=== PATIENT | male | born 1995 | race Hispanic/Latino ===

== ENCOUNTER → 2021-09-26 | Emergency (ER) | payer OTHER ==
--- OUTSIDE RECORDS SUMMARY | 2021-09-27 08:50 | XMS REPORT | Continuity of Care Document ---
:1995 Author Organization [facility] t Address [address] [place] [address] Care Team Providers Name Role Phone SELENA CORONEL Primary Care Physician Unavailable Petra GRAHAM Attending Clinician Unavailable LIBAN CORONEL Attending Clinician Unavailable Baldo METZ Attending Clinician BALDO Attending Clinician Unavailable Nurse, Kailash Attending Clinician Unavailable Liban Coronel MD Attending Clinician Doctor Unassigned, Name Attending Clinician Unavailable JAYLA POLO Attending Clinician Unavailable BALDO Admitting Clinician Unavailable Payers Payer Name Policy Type Policy Number Effective Date Expiration Date Katelyn ordaz [facility] [id number] 2017 00:00:00 SELECT Problems Condition Condition Condition Status Onset Resolution Last Treating Co mments Source Name Details Category Date Date Treatment Clinician Date No known No known Disease Unive rs active active ity of problems problems [facility] Allergies, Adverse Reactions, Alerts Allergy Allergy Status Severity Reaction(s) Onset Inactive Treating Comm ents Source Name Type Date Date Clinician NO KNOWN Drug Active Univers ALLERGIE Class ity of S [facility] Social History Social Habit Start Date Stop Date Quantity Comments Source Exposure to Not sure [facility] SARS-CoV-2 [facility] (event) [place] Alcohol intake 2021-04-14 2021-04-14 .29 /d University of 00:00:00 00:00:00 [facility] Tobacco use and 2017-06-06 2017-06-06 Former user Universi ty of exposure 00:00:00 00:00:00 [facility] History of 2016-10-04 User of smokeless Univers ity of tobacco use 00:00:00 tobacco [facility] Tobacco Comment 2016-09-11 2016-09-11 1 cigarette every Un iversity of 00:00:00 00:00:00 2 weeks [facility] Sex Assigned At [birth year] Universit y of 00:00:00 00:00:00 [facility] Smoking Status Start Date Stop Date Source Former smoker 2017-06-06 00:00:00 2017-06-06 00:00:00 Universi ty of [facility] Medications Ordered Filled Start Stop Current Ordering Indication Dosage Frequency Signature Comments Components Source Medication Medication Date Date Medication? Clinician (SIG) Name Name nicotine 21 2021- No 1{patch Apply 1 Univers mg/24 hr 08-17 } Patch to ity of patch 15:46: 00:00 area(s) [place] 01 :00 every 24 Medical (twenty-fo Branch ur) hours. PANTOPRAZOL 2020-07 Yes [id number] TAKE 1 Univers E 40 mg EC 2-13 TABLET BY ity of tablet 00:00: [facility] EVERY DAY Medical Branch PANTOPRAZOL 2020-07 Yes [id number] TAKE 1 Univers E 40 mg EC 2-13 TABLET BY ity of tablet 00:00: [facility] EVERY DAY Medical Branch PANTOPRAZOL 2020-07 Yes [id number] TAKE 1 Univers E 40 mg EC 2-13 TABLET BY ity of tablet 00:00: [facility] EVERY DAY Medical Branch PANTOPRAZOL 2020-07 Yes [id number] TAKE 1 Univers E 40 mg EC 2-13 TABLET BY ity of tablet 00:00: [facility] EVERY DAY Medical Branch PANTOPRAZOL 2020-07 Yes [id number] TAKE 1 Univers E 40 mg EC 2-13 TABLET BY ity of tablet 00:00: [facility] EVERY DAY Medical Branch PANTOPRAZOL 2020-07 Yes [id number] TAKE 1 Univers E 40 mg EC 2-13 TABLET BY ity of tablet 00:00: [facility] EVERY DAY Medical Branch SERTRALINE 2020-07 Yes [id number] TAKE 1 U nivers 100 mg 0-28 TABLET BY ity of tablet 00:00: [facility] EVERY DAY Medical Branch SERTRALINE 2020-07 Yes [id number] TAKE 1 U nivers 100 mg 0-28 TABLET BY ity of tablet 00:00: MOUTH [place] 00 EVERY DAY Medical Branch SERTRALINE 2020-07 Yes [id number] TAKE 1 U nivers 100 mg 0-28 TABLET BY ity of tablet 00:00: MOUTH [place] 00 EVERY DAY Medical Branch SERTRALINE 2020-07 Yes [id number] TAKE 1 U nivers 100 mg 0-28 TABLET BY ity of tablet 00:00: MOUTH [place] 00 EVERY DAY Medical Branch SERTRALINE 2020-07 Yes [id number] TAKE 1 U nivers 100 mg 0-28 TABLET BY ity of tablet 00:00: MOUTH [place] 00 EVERY DAY Medical Branch SERTRALINE 2020-07 Yes [id number] TAKE 1 U nivers 100 mg 0-28 TABLET BY ity of tablet 00:00: MOUTH [place] 00 EVERY DAY Medical Branch traMADoL Yes [id number] 50mg Take 1 Univers (ULTRAM) 50 8-15 tablet by ity of mg tablet 00:00: mouth [place] 00 every 6 Medical (six) Branch hours as needed for Pain (scale 7-10). Indication s: acute pain dicyclomine Yes [id number] 20mg Take 1 Univers 20 mg 8-15 tablet by ity of tablet 00:00: mouth [place] 00 every 6 Medical (six) Branch hours as needed for Abdominal pain. ondansetron Yes [id number] 4mg Take 1 Univers (ZOFRAN) 4 8-15 tablet by ity of mg tablet 00:00: mouth [place] 00 every 8 Medical (eight) Branch hours as needed for Nausea and Vomiting (N/V). ondansetron Yes [id number] 4mg Take 1 Univers (ZOFRAN) 4 8-15 tablet by ity of mg tablet 00:00: mouth [place] 00 every 8 Medical (eight) Branch hours as needed for Nausea and Vomiting (N/V). ondansetron 0 Yes [id number] 4mg Take 1 Univers (ZOFRAN) 4 8-15 tablet by ity of mg tablet 00:00: mouth [place] 00 every 8 Medical (eight) Branch hours as needed for Nausea and Vomiting (N/V). ondansetron Yes [id number] 4mg Take 1 Univers (ZOFRAN) 4 8-15 tablet by ity of mg tablet 00:00: mouth [place] 00 every 8 Medical (eight) Branch hours as needed for Nausea and Vomiting (N/V). ondansetron Yes [id number] 4mg Take 1 Univers (ZOFRAN) 4 8-15 tablet by ity of mg tablet 00:00: mouth [place] 00 every 8 Medical (eight) Branch hours as needed for Nausea and Vomiting (N/V). ondansetron Yes [id number] 4mg Take 1 Univers (ZOFRAN) 4 8-15 tablet by ity of mg tablet 00:00: mouth [place] 00 every 8 Medical (eight) Branch hours as needed for Nausea and Vomiting (N/V). traMADoL 2021- No [id number] 50mg Take 1 Univer s (ULTRAM) 50 8-15 - tablet by it y of mg tablet 00:00: 00:00 mouth [place] 00 :00 every 6 Medical (six) Branch hours as needed for Pain (scale 7-10). Indication s: acute pain dicyclomine 2021- No [id number] 20mg Take 1 Univers 20 mg 8-15 -26 tablet by ity of tablet 00:00: 00:00 mouth [place] 00 :00 every 6 Medical (six) Branch hours as needed for Abdominal pain. QUETIAPINE Yes [id number] TAKE 1 U nivers 25 mg 6-17 TABLET BY ity of tablet 00:00: MOUTH [place] 00 EVERYDAY Medical AT BEDTIME Branch QUETIAPINE 2021- No [id number] TAKE 1 Univers 25 mg 6-17 - TABLET BY ity of tablet 00:00: 00:00 MOUTH [place] 00 :00 EVERYDAY Medical AT BEDTIME Branch nicotine 21 Yes 1{patch Apply 1 Univers mg/24 hr 5-31 } Patch to ity of patch 23:44: area(s) [place] 29 every 24 Medical (twenty-fo Branch ur) hours. albuterol Yes [id number] 2{puff} Inhale 2 Univers 90 3-14 Puffs ity of mcg/actuati 00:00: every 6 [place] as on inhaler 00 (six) Medical hours as Branch needed for Shortness of Breath. albuterol Yes [id number] 2{puff} Inhale 2 Univers 90 3-14 Puffs ity of mcg/actuati 00:00: every 6 Nikhil as on inhaler 00 (six) Medical hours as Branch needed for Shortness of Breath. albuterol Yes [id number] 2{puff} Inhale 2 Univers 90 3-14 Puffs ity of mcg/actuati 00:00: every 6 Nikhil as on inhaler 00 (six) Medical hours as Branch needed for Shortness of Breath. albuterol Yes [id number] 2{puff} Inhale 2 Univers 90 3-14 Puffs ity of mcg/actuati 00:00: every 6 Nikhil as on inhaler 00 (six) Medical hours as Branch needed for Shortness of Breath. albuterol Yes [id number] 2{puff} Inhale 2 Univers 90 3-14 Puffs ity of mcg/actuati 00:00: every 6 Nikhil as on inhaler 00 (six) Medical hours as Branch needed for Shortness of Breath. albuterol Yes [id number] 2{puff} Inhale 2 Univers 90 3-14 Puffs ity of mcg/actuati 00:00: every 6 Nikhil as on inhaler 00 (six) Medical hours as Branch needed for Shortness of Breath. Immunizations Ordered Immunization Filled Immunization Date Status Commen ts Source Name Name HEP B, Adult Dosage 2021 Completed Unive rsity of 00:00:00 [facility] HEP B, Adult Dosage 2021 Completed Unive rsity of 00:00:00 [facility] HEP B, Adult Dosage 2021 Completed Unive rsity of 00:00:00 [facility] HEP B, Adult Dosage 2021 Completed Unive rsity of 00:00:00 [facility] Influenza Virus 2021-07-13 Completed Universit y of Vaccine Quad IM 3+ 00:00:[address] [facility] Influenza Virus 2021-07-13 Completed Universit y of Vaccine 00:00:00 [facility] Influenza Virus 2021-07-13 Completed Universit y of Vaccine Quad IM 3+ 00:00:[address] [facility] Influenza Virus 2021-07-13 Completed Universit y of Vaccine 00:00:00 [facility] Influenza Virus 2021-07-13 Completed Universit y of Vaccine Quad IM 3+ 00:00:[address] [facility] Influenza Virus 2021-07-13 Completed Universit y of Vaccine 00:00:00 [facility] Influenza Virus 2021-07-13 Completed Universit y of Vaccine Quad IM 3+ 00:00:[address] [facility] Influenza Virus 2021-07-13 Completed Universit y of Vaccine 00:00:00 [facility] Influenza Virus 2021-07-13 Completed Universit y of Vaccine Quad IM 3+ 00:00:[address] [facility] Influenza Virus 2021-07-13 Completed Universit y of Vaccine 00:00:00 [facility] Influenza Virus 2021-07-13 Completed Universit y of Vaccine Quad IM 3+ 00:00:[address] [facility] Influenza Virus 2021-07-13 Completed Universit y of Vaccine 00:00:00 [facility] TDAP 2020-12-29 Completed University of 00:00:00 [facility] Meningococcal 2020-12-29 Completed University of Polysaccharide 00:00:00 [place] Medi yesica (groups A, C, Y and Branc h W-135) conjugate vaccine (MCV4P) PPD (TB) 2020-12-29 Completed University of 00:00:00 [facility] TDAP 2020-12-29 Completed University of 00:00:00 [facility] Meningococcal 2020-12-29 Completed University of Polysaccharide 00:00:00 [place] Medi yesica (groups A, C, Y and Branc h W-135) conjugate vaccine (MCV4P) PPD (TB) 2020-12-29 Completed University of 00:00:00 [facility] TDAP 2020-12-29 Completed University of 00:00:00 [facility] Meningococcal 2020-12-29 Completed University of Polysaccharide 00:00:00 [place] Medi yesica (groups A, C, Y and Branc h W-135) conjugate vaccine (MCV4P) PPD (TB) 2020-12-29 Completed University of 00:00:00 [facility] TDAP 2020-12-29 Completed University of 00:00:00 [facility] Meningococcal 2020-12-29 Completed University of Polysaccharide 00:00:00 [place] Medi yesica (groups A, C, Y and Branc h W-135) conjugate vaccine (MCV4P) PPD (TB) 2020-12-29 Completed University of 00:00:00 [facility] TDAP 2020-12-29 Completed University of 00:00:00 [facility] Meningococcal 2020-12-29 Completed University of Polysaccharide 00:00:00 [place] Medi yesica (groups A, C, Y and Branc h W-135) conjugate vaccine (MCV4P) PPD (TB) 2020-12-29 Completed University of 00:00:00 [facility] TDAP 2020-12-29 Completed University of 00:00:00 [facility] Meningococcal 2020-12-29 Completed University of Polysaccharide 00:00:00 [place] Medi yesica (groups A, C, Y and Branc h W-135) conjugate vaccine (MCV4P) PPD (TB) 2020-12-29 Completed University of 00:00:00 [facility] SARS-COV-2 COVID-19 2020-12-21 Completed Unive rsity of PFIZER VACCINE 00:00:00 [facility] SARS-COV-2 COVID-19 2020-12-21 Completed Unive rsity of PFIZER VACCINE 00:00:00 [facility] SARS-COV-2 COVID-19 2020-12-21 Completed Unive rsity of PFIZER VACCINE 00:00:00 [facility] SARS-COV-2 COVID-19 2020-12-21 Completed Unive rsity of PFIZER VACCINE 00:00:00 [facility] SARS-COV-2 COVID-19 2020-12-21 Completed Unive rsity of PFIZER VACCINE 00:00:00 [facility] SARS-COV-2 COVID-19 2020-12-21 Completed Unive rsity of PFIZER VACCINE 00:00:00 [facility] SARS-COV-2 COVID-19 2020-11-29 Completed Unive rsity of PFIZER VACCINE 00:00:00 [facility] SARS-COV-2 COVID-19 2020-11-29 Completed Unive rsity of PFIZER VACCINE 00:00:00 [facility] SARS-COV-2 COVID-19 2020-11-29 Completed Unive rsity of PFIZER VACCINE 00:00:00 [facility] SARS-COV-2 COVID-19 2020-11-29 Completed Unive rsity of PFIZER VACCINE 00:00:00 [facility] SARS-COV-2 COVID-19 2020-11-29 Completed Unive rsity of PFIZER VACCINE 00:00:00 [facility] SARS-COV-2 COVID-19 2020-11-29 Completed Unive rsity of PFIZER VACCINE 00:00:00 [facility] Influenza Virus 2020-05-13 Completed Universit y of Vaccine Quad IM 3+ 00:00:[address] [facility] Influenza Virus 2020-05-13 Completed Universit y of Vaccine Quad IM 3+ 00:00:[address] [facility] Influenza Virus 2020-05-13 Completed Universit y of Vaccine Quad IM 3+ 00:00:[address] [facility] Influenza Virus 2020-05-13 Completed Universit y of Vaccine Quad IM 3+ 00:00:[address] [facility] Influenza Virus 2020-05-13 Completed Universit y of Vaccine Quad IM 3+ 00:00:[address] [facility] Influenza Virus 2020-05-13 Completed Universit y of Vaccine Quad IM 3+ 00:00:[address] [facility] Influenza Virus 2019-05-23 Completed Universit y of Vaccine 00:00:00 [facility] Influenza Virus 2019-05-23 Completed Universit y of Vaccine 00:00:00 [facility] Influenza Virus 2019-05-23 Completed Universit y of Vaccine 00:00:00 [facility] Influenza Virus 2019-05-23 Completed Universit y of Vaccine 00:00:00 [facility] Influenza Virus 2019-05-23 Completed Universit y of Vaccine 00:00:00 [facility] Influenza Virus 2019-05-23 Completed Universit y of Vaccine 00:00:00 [facility] Vital Signs Vital Name Observation Time Observation Value Comments Source Systolic blood 2021-08-24 21:09:00 146 mm[Hg] Univer sity of pressure [facility] Diastolic blood 2021-08-24 21:09:00 79 mm[Hg] Unive rsity of pressure [facility] Heart rate 2021-08-24 21:09:00 90 /min [facility] Body height 2021-08-24 21:08:00 167.6 cm [facility] Body weight 2021-08-24 21:08:00 73.029 kg [facility] BMI 2021-08-24 21:08:00 25.99 kg/m2 Universi ty [facility] Systolic blood 2021-08-16 19:28:00 109 mm[Hg] Univer sity of pressure [facility] Diastolic blood 2021-08-16 19:28:00 72 mm[Hg] Unive rsity of pressure [facility] Heart rate 2021-08-16 19:28:00 80 /min [facility] Respiratory rate 2021-08-16 19:28:00 18 /min Univ ersity of [facility] Body height 2021-08-16 19:28:00 [facility] 2021-08-16 19:28:00 73.057 kg [facility] BMI 2021-08-16 19:28:00 26.00 kg/m2 [facility] Oxygen saturation in 2021-08-16 19:28:00 99 /min [facility] Arterial blood by [facility] Pulse oximetry Branch Procedures Procedure Date / Time Performing Clinician Source Performed TRANSTHORACIC ECHO (TTE) 2021-08-24 21:36:55 [facility] 2021-08-16 06:01:00 Doctor Unassigned, No [facility] RELEASE/CLEARANCE FORMS Name Medical Branch Encounters Start End Encounter Admission Attending Care Care Encounter Source Date/Time Date/Time Type Type Clinicians Facility Department ID 2021-09-25 2021-09-25 Outpatient [facility] [id number] Univers 20:40:00 20:40:00 [id number] [facility] 2021-09-25 2021-09-25 Outpatient [facility] [id number] Univers 20:40:00 20:36:26 DEIDRE mendez o f [facility] 2021-09-19 2021-09-19 [facility] [id number] Univers 14:00:00 14:00:00 [id number] [facility] 2021-09-19 2021-09-19 Outpatient R [facility] [id number] Univers 14:00:00 14:00:00 SELENA [facility] 2021-08-25 2021-08-25 Patient Baldo [facility] [id number] Univers 00:00:00 00:00:00 Secure Msg Ming CHAPO [id number] [facility] [id number] [phone] Mi dical NAL 059 [facility] 2021-08-24 2021-08-24 Outpatient R [facility] [id number] Univers 14:56:01 23:59:00 QIANIKOLE ity o f [facility] 2021-08-24 2021-08-24 [facility] [id number] Univers 14:56:01 23:59:00 Encounter Ming COWAN [id number] ity of [id number] [phone] [facility] 843 [facility] 2021-08-24 2021-08-24 [facility] [id number] Univers 15:00:00 15:00:00 MING [id number] ity o [facility] 2021 2021 Outpatient R [facility] [id number] Univers 15:40:00 15:43:11 SELENA mendez [facility] 2021 2021 Nurse Nurse, Adama Linder [facility] [id number] Univers 15:40:00 15:43:11 [facility] [id number] it[facility] [id number] Nikhil as FABRIZIO?BLEA [phone] [address] OFFICE [facility] 2021 2021 Telephone Waldo [facility] [id number] Univers 00:00:00 00:00:00 [facility] [id number] it y of Liban [facility] [id number] Nikhil as PROFESSIO [phone] [address] OFFICE [facility] 2021-08-16 2021-08-16 [facility] [id number] Univers 13:20:00 13:59:32 Visit Ming COWAN [id number] ity of [id number] [place] [phone] Mi dical [facility] 059 [facility] 2021-08-16 2021-08-16 Outpatient Luis Enrique [facility] [id number] [facility] 13:20:00 13:59:32 MING mendez o f [facility] 2021-08-16 2021-08-16 Orders Doctor LISETH [id number] Univers 00:00:00 00:00:00 Only Unassigned, MARICEL [id number] ity of [place] [facility] [id number] Nikhil as [phone] [address] 2021-08-15 2021-08-15 Outpatient Luis Enrique [facility] [id number] Univers 13:30:00 13:30:00 MAGDALENA mendez of [facility] Results This patient has no known results.
[2021-09-30 11:54] LABS: HBsAG Nonreactive (Nonreactive)
== END ==
LOC: ER 00:09 → LAB 09-27 00:09 → EDSTATUS 09-27 08:40
DX: Z02.9 Encounter for administrative examinations, unspecified (principal)
CPT/HCPCS: 36415; 86705; 86803; 87340; G0433

== ENCOUNTER 2023-11-19 14:11 | Emergency (ER) | payer OTHER ==
--- OUTSIDE RECORDS SUMMARY | 2023-11-19 14:18 | XMS REPORT | Continuity of Care Document ---
Author Name Unknown Address [address] [facility] [address] [place] [address] [facility] thconnect Address [address] [facility] [place] [address] Care Team Providers Care Substation Operator Helper Name Role Phone Homer METZ, Selena Louie Primary Care Physician ROSEANNE VAZ Attending Clinician Unavailable ROSEANNE VAZ Attending Clinician Unavailable Arlette Conroy Attending Clinician [phone] Lisset Mclaughlin MD Attending Clinician [phone] LISSET MCLAUGHLIN Attending Clinician Unavailable Unknown, Attending Attending Clinician Unavailab SELENA Lea Attending Clinician Simran Haas MD, Selena Louie Attending Clinician + [phone] BETH AMAYA Attending Clinician Unavailable Beth Aragon Attending Clinician [phone] Atif October Attending Clinician Unavailab le Doctor Unassigned, Bond Attending Clinician U Adama Clement - Kailash Attending Clinician Unavailable MARI OSULLIVAN Attending Clinician Unavailab Mari Hoang DO Attending Clinician [phone] UNKNOWN, ATTENDING Attending Clinician Unavailab ARLETTE Fernandez Attending Clinician Unavailable Lai Ta Attending Clinician [phone] HAYLEE CERVANTES Attending Clinician Unavailable Haylee Velásquez Attending Clinician [phone] Pepe Gavin MD Attending Clinician [phone] Yousuf HAN, Liudmila Roberts Attending Clinician UnavailLAI Greene Attending Clinician Unavailable ARIC MELISSA Attending Clinician Unavailable Omaghomi OFFSET LITHOGRAPHIC PRESS OPERATOR, Lynnei Attending Clinician [phone] DARLING GRAHAM Attending Clinician Unavailab Ming Dave MD Attending Clinician [phone] MING DOSHI Attending Clinician Unavailable Nurse, Adama Linder Attending Clinician Unavailable 2, [facility] Attending Clinician Unavailable MAGDALENA POLO Attending Clinician Unavail able ALETHA SANDERS Attending Clinician Unava ilStephanie Molina PA-C Attending Clinician [phone] STEPHANIE SANDERSON Attending Clinician Unavailable Tiffani Beck MD Attending Clinician [phone] Nurse, [facility] I Attending Clinician Unavail able Lab, [facility] I Attending Clinician Unavailab Darling Granda Attending Clinician [phone] Provider, [facility] Attending Clinician Un available SELENA EDWARDS III Attending Clinician UnavailMARIA LUISA Ayala Attending Clinician UnavailMaria Luisa Pereyra MD Attending Clinician [phone] STEPHEN RIOS Attending Clinician Unavailable [facility] Attending Clinician Unav ailable Dena Martinez MD Attending Clinician DENA MARTINEZ Attending Clinician Maira vailable Cristy Dupont Attending Clinician [phone] MING DOSHI Admitting Clinician Unavailable Payers Payer Name Policy Type Policy Number Effective Date Expirati on Date Source [facility] [id number] 2017 00:00:00 Problems Condition Name Condition Details Condition Category Status Onset Date Resolution Date Last Treatment Date Treating Clinician Comments Source Essential hypertensi on Essential hypertensi on Disease Active 2021-07 00:00: 00 [facility] Gastroesop hageal reflux disease without esophagiti s Gastroesop hageal reflux disease without esophagiti s Disease Active 2021-07 00:00: 00 [facility] Anxiety Anxiety Disease Active 2021-07 00:00: 00 [facility] No known active problems No known active problems Disease [facility] Allergies, Adverse Reactions, Alerts Allergy Name Allergy Type Status Severity Reaction(s) Onset Date Inactive Date Treating Clinician Comments Source NO KNOWN ALLERGIE S Drug Class Active [facility] Social History Social Habit Start Date Stop Date Quantity Comments Source Gender identity [facility] Sexual orientation [facility] Alcohol intake 2023 00:00:00 2023 00:00:00 .29 /d [facility] History of Social function 2023-07-02 00:00:00 2023-07-02 00:00:00 [facility] Exposure to SARS-CoV-2 (event) 2022-04-22 00:00:00 2022-05-02 09:30:00 Not sure [facility] Tobacco use and exposure 2022-04-04 00:00:00 2022-04-04 00:00:00 Former smokeless tobacco user [facility] Tobacco Comment 2022-04-04 00:00:00 2022-04-04 00:00:00 1 cigarette every 2 weeks [facility] History of tobacco use 2016-10-04 00:00:00 User of smokeless tobacco [facility] Sex Assigned At 1995 00:00:00 1995 00:00:00 [facility] Smoking Status Start Date Stop Date Source Ex-smoker 2022-04-04 00:00:00 2022-04-04 00:00:00 U [facility] Medications Ordered Medication Name Filled Medication Name Start Date Stop Date Current Medication? Ordering Clinician Indication Dosage Frequency Signature (SIG) Comments Components Source pantoprazol e 40 mg EC tablet 11-01 00:00: 00 Yes [id number] 40mg Take 1 tablet by mouth in the morning. [facility] SERTraline 100 mg tablet 11-01 00:00: 00 Yes [id number] 100mg Take 1 tablet by mouth in the morning. [facility] SERTraline 50 mg tablet 4-12 00:00: 00 Yes [id number] 50mg Take 1 tablet by mouth in the morning. [facility] losartan 50 mg tablet 4-12 00:00: 00 Yes [id number] 50mg Take 1 tablet by mouth in the morning. [facility] pantoprazol e 40 mg EC tablet 3- 00:00: 00 10-31 00:00 :00 No [id number] 40mg Take 1 tablet by mouth in the morning. [facility] SERTraline 100 mg tablet 09-23 00:00: 00 10-31 00:00 :00 No [id number] 100mg Take 1 tablet by mouth in the morning. [facility] SERTraline 50 mg tablet 09-23 00:00: 00 10-31 00:00 :00 No [id number] 50mg Take 1 tablet by mouth in the morning. [facility] losartan 50 mg tablet 09-23 00:00: 00 10-31 00:00 :00 No [id number] 50mg Take 1 tablet by mouth in the morning. [facility] benzonatate 100 mg capsule 08-17 00:00: 00 Yes [id number] 200mg Take 2 capsules by mouth every 8 (eight) hours as needed for Cough. [facility] nirmatrelvi r-ritonavir (PAXLOVID) 300 mg (150 mg x 2)-100 mg tablet 08-17 00:00: 00 Yes [id number] 3{tbl} Take 3 tablets by mouth in the morning and 3 tablets in the evening. [facility] albuterol 90 mcg/actuati on inhaler 08-17 00:00: 00 Yes [id number] 2{puff} Inhale 2 Puffs every 6 (six) hours as needed for Wheezing. [facility] ondansetron 4 mg disintegrat ing tablet 08-17 00:00: 00 Yes [id number] 4mg Take 1 tablet by mouth every 12 (twelve) hours as needed for Nausea and Vomiting (N/V). [facility] pantoprazol e 40 mg EC tablet 2022-07 00:00: 00 09-24 00:00 :00 No [id number] 40mg Take 1 tablet by mouth in the morning. [facility] hydrocortis one 25 mg suppository 2022-07 00:00: 00 07-22 05:59 :00 No [id number] 25mg Insert 1 Suppositor y into rectum in the morning and 1 Suppositor y in the evening. Do all this for 3 days. [facility] losartan 50 mg tablet 2022-07 00:00: 00 08-13 00:00 :00 No [id number] 50mg Take 1 tablet by mouth in the morning. [facility] SERTraline 100 mg tablet 2022-07 00:00: 00 08-13 00:00 :00 No [id number] 100mg Take 1 tablet by mouth in the morning. [facility] SERTraline 50 mg tablet 2022-07 00:00: 00 08-13 00:00 :00 No [id number] 50mg Take 1 tablet by mouth in the morning. [facility] ibuprofen 600 mg tablet 2022-07 00:00: 00 Yes 600mg Take 1 tablet by mouth every 6 (six) hours as needed. [facility] amoxicillin 500 mg capsule 2022-07 00:00: 00 07-19 00:00 :00 No TAKE 1 CAPSULE BY MOUTH EVERY 8 HOURS [facility] chlorhexidi ne 0.12 % mouthwash 2022-07 00:00: 00 07-19 00:00 :00 No SWISH AND SPIT WITH 15 ML TWICE A DAY [facility] pantoprazol e 40 mg EC tablet 04-16 00:00: 00 07-18 00:00 :00 No [id number] 40mg Take 1 tablet by mouth in the morning. [facility] NaCl 0.9% (NS) bolus infusion 1,000 mL 01-17 17:30: 00 01-17 18:25 :00 No 1000mL at 999 mL/hr, 1,000 mL, IV Infusion, ONCE, 1 dose, [facility]17/23 [facility] 1230[facility] 30 mg 01-17 16:45: 00 01-17 16:02 :00 No 30mg 30 mg, Slow IV Push, ONCE, 1 dose, On Sun01/17/23 at 1145, Routine [facility] LORazepam (ATIVAN) injection 0.5 mg 01-17 16:00: 00 01-17 16:02 :00 No .5mg 0.5 mg, Slow IV Push, ONCE, 1 dose, On Sun01/17/23 at 1100, STAT [facility] NaCl 0.9% (NS) bolus infusion 1,000 mL 01-17 15:15: 00 01-17 15:40 :00 No 1000mL at 999 mL/hr, 1,000 mL, IV Infusion, ONCE, 1 dose, On Sun01/17/23 at 1015, [facility] famotidine (PEPCID (PF)) injection 20 mg 01-17 14:30: 00 01-17 14:42 :00 No 20mg 20 mg, Slow IV Push, ONCE, 1 dose, On Sun01/17/23 at 0930, [facility] metoclopram sanya HCl (REGLAN) injection 10 mg 01-17 14:30: 00 01-17 14:42 :00 No 10mg 10 mg, Slow IV Push, ONCE, 1 dose, On Sun01/17/23 at 0930, [facility] ondansetron 4 mg disintegrat ing tablet 01-17 00:00: 00 08-17 00:00 :00 No [id number] 4mg Take 1 tablet by mouth every 8 (eight) hours as needed for Nausea and Vomiting (N/V). [facility] SERTRALINE 100 mg tablet 1- 00:00: 00 07-02 00:00 :00 No [id number] TAKE 1 TABLET BY MOUTH EVERY DAY [facility] ergocalcife rol, vitamin d2, 1,250 mcg (50,000 unit) capsule 2021-07 0-12 00:00: 00 07-19 00:00 :00 No [id number] Take 1 capsule by mouth weekly. [facility] rosuvastati n 20 mg tablet 2021-07 00:00: 00 03-23 00:00 :00 No [id number] 20mg Take 1 tablet by mouth at bedtime. [facility] rosuvastati n 20 mg CpSP 2021-07- 00:00: 00 05-03 00:00 :00 No [id number] 20mg Take 20 mg by mouth at bedtime. [facility] losartan 50 mg tablet 2021-07 00:00: 00 07-11 00:00 :00 No [id number] 50mg Take 1 tablet by mouth in the morning. [facility] pantoprazol e 40 mg EC tablet 2021-07 0 00:00: 00 04-14 00:00 :00 No [id number] 40mg Take 1 tablet by mouth in the morning. [facility] doxycycline hyclate 100 mg tablet 9-15 00:00: 00 04-14 04:59 :00 No [id number] 100mg Take 1 tablet by mouth in the morning and 1 tablet in the evening. Do all this for 7 days. [facility] sulfamethox azole-trime thoprim (BACTRIM DS) 800-160 mg per tablet 9-13 00:00: 00 04-12 04:59 :00 No [id number] 1{tbl} Take 1 tablet by mouth in the morning and 1 tablet in the evening. Do all this for 7 days. [facility] BUSPIRONE 10 mg tablet 6-30 00:00: 00 03-23 00:00 :00 No [id number] 10mg TAKE 1 TABLET BY MOUTH 2 (TWO) TIMES DAILY NEEDED FOR OTHER (ANXIETY). [facility] PANTOPRAZOL E 40 mg EC tablet 6-13 00:00: 05-02 00:00 :00 No [id number] TAKE 1 TABLET BY MOUTH EVERY DAY [facility] losartan 50 mg tablet 4-19 00:00: 00 05-02 00:00 :00 No [id number] 50mg Take 1 tablet by mouth daily. [facility] nicotine 21 mg/24 hr patch 08-17 15:46: 01 08-17 00:00 :00 No 1{patch } Apply 1 Patch to area(s) every 24 (twenty-fo ur) hours. [facility] PANTOPRAZOL E 40 mg EC tablet 2020-07 2-13 00:00: 00 10-04 00:00 :00 No [id number] TAKE 1 TABLET BY MOUTH EVERY DAY [facility] SERTRALINE 100 mg tablet 2020-07 0-28 00:00: 00 08-12 00:00 :00 No [id number] TAKE 1 TABLET BY MOUTH EVERY DAY [facility] ondansetron (ZOFRAN) 4 mg tablet 8-15 00:00: 00 10-13 00:00 :00 No [id number] 4mg Take 1 tablet by mouth every 8 (eight) hours as needed for Nausea and Vomiting (N/V). [facility] albuterol 90 mcg/actuati on inhaler 3-14 00:00: 00 03-23 00:00 :00 No [id number] 2{puff} Inhale 2 Puffs every 6 (six) hours as needed for Shortness of Breath. [facility] acetaminoph en-codeine 300-30 mg tablet 2019-07 2-04 00:00: 00 12-14 00:00 :00 No [id number] 1/2 - 1 tab Every 4hrs as needed for pain or cough requiring narcotic Indication s: acute pain [facility] metoclopram sanya HCl 10 mg tablet 2019-07 2-04 00:00: 00 12-14 00:00 :00 No [id number] 1 tab with suspicion of headache and every 6hr until resolved [facility] SERTRALINE 100 mg tablet 2019-07 0-21 00:00: 00 05-19 00:00 :00 No [id number] TAKE 1 TABLET BY MOUTH EVERY DAY [facility] pantoprazol e 40 mg EC tablet 2019-07 0-08 00:00: 00 12-29 00:00 :00 No [id number] 40mg Take 1 tablet by mouth daily. [facility] Immunizations Ordered Immunization Name Filled Immunization Name Date Status Comments Source Influenza Virus Vaccine Quad IM, Preserv and ABX Free 6 MO-64 YRS (FLUCELVAX) 2022-05-16 00:00:00 Completed [facility] Influenza Virus Vaccine Quad IM, Preserv and ABX Free 6 MO-64 YRS (FLUCELVAX) 2022-05-16 00:00:00 Completed [facility] Influenza Virus Vaccine Quad IM, Preserv and ABX Free 6 MO-64 YRS (FLUCELVAX) 2022-05-16 00:00:00 Completed [facility] Influenza Virus Vaccine Quad IM, Preserv and ABX Free 6 MO-64 YRS (FLUCELVAX) 2022-05-16 00:00:00 Completed [facility] HEP B, Adult Dosage 2021 00:00:00 Completed [facility] HEP B, Adult Dosage 2021 00:00:00 Completed [facility] HEP B, Adult Dosage 2021 00:00:00 Completed [facility] HEP B, Adult Dosage 2021 00:00:00 Completed [facility] HEP B, Adult Dosage 2021 00:00:00 Completed [facility] HEP B, Adult Dosage 2021 00:00:00 Completed [facility] HEP B, Adult Dosage 2021 00:00:00 Completed [facility] HEP B, Adult Dosage 2021 00:00:00 Completed [facility] HEP B, Adult Dosage 2021 00:00:00 Completed [facility] HEP B, Adult Dosage 2021 00:00:00 Completed [facility] HEP B, Adult Dosage 2021 00:00:00 Completed [facility] HEP B, Adult Dosage 2021 00:00:00 Completed [facility] HEP B, Adult Dosage 2021 00:00:00 Completed [facility] HEP B, Adult Dosage 2021 00:00:00 Completed [facility] HEP B, Adult Dosage 2021 00:00:00 Completed [facility] HEP B, Adult Dosage 2021 00:00:00 Completed [facility] Influenza Virus Vaccine Quad IM 3+ YRS 2021-07-13 00:00:00 Completed [facility] Influenza Virus Vaccine 2021-07-13 00:00:00 Completed [facility] Influenza Virus Vaccine Quad IM 3+ YRS 2021-07-13 00:00:00 Completed [facility] Influenza Virus Vaccine 2021-07-13 00:00:00 Completed [facility] Influenza Virus Vaccine Quad IM 3+ YRS 2021-07-13 00:00:00 Completed [facility] Influenza Virus Vaccine 2021-07-13 00:00:00 Completed [facility] Influenza Virus Vaccine Quad IM 3+ YRS 2021-07-13 00:00:00 Completed [facility] Influenza Virus Vaccine 2021-07-13 00:00:00 Completed [facility] Influenza Virus Vaccine Quad IM 3+ YRS 2021-07-13 00:00:00 Completed [facility] Influenza Virus Vaccine 2021-07-13 00:00:00 Completed [facility] Influenza Virus Vaccine Quad IM 3+ YRS 2021-07-13 00:00:00 Completed [facility] Influenza Virus Vaccine 2021-07-13 00:00:00 Completed [facility] Influenza Virus Vaccine Quad IM 3+ YRS 2021-07-13 00:00:00 Completed [facility] Influenza Virus Vaccine 2021-07-13 00:00:00 Completed [facility] Influenza Virus Vaccine Quad IM 3+ YRS 2021-07-13 00:00:00 Completed [facility] Influenza Virus Vaccine 2021-07-13 00:00:00 Completed [facility] Influenza Virus Vaccine Quad IM 3+ YRS 2021-07-13 00:00:00 Completed [facility] Influenza Virus Vaccine 2021-07-13 00:00:00 Completed [facility] Influenza Virus Vaccine Quad IM 3+ YRS 2021-07-13 00:00:00 Completed [facility] Influenza Virus Vaccine 2021-07-13 00:00:00 Completed [facility] Influenza Virus Vaccine Quad IM 3+ YRS 2021-07-13 00:00:00 Completed [facility] Influenza Virus Vaccine 2021-07-13 00:00:00 Completed [facility] Influenza Virus Vaccine Quad IM 3+ YRS 2021-07-13 00:00:00 Completed [facility] Influenza Virus Vaccine 2021-07-13 00:00:00 Completed [facility] Influenza Virus Vaccine Quad IM 3+ YRS 2021-07-13 00:00:00 Completed [facility] Influenza Virus Vaccine 2021-07-13 00:00:00 Completed [facility] Influenza Virus Vaccine Quad IM 3+ YRS 2021-07-13 00:00:00 Completed [facility] Influenza Virus Vaccine 2021-07-13 00:00:00 Completed [facility] Influenza Virus Vaccine Quad IM 3+ YRS 2021-07-13 00:00:00 Completed [facility] Influenza Virus Vaccine 2021-07-13 00:00:00 Completed [facility] Influenza Virus Vaccine Quad IM 3+ YRS 2021-07-13 00:00:00 Completed [facility] Influenza Virus Vaccine 2021-07-13 00:00:00 Completed [facility] TDAP 2020-12-29 00:00:00 Completed [facility] Meningococcal Polysaccharide (groups A, C, Y and W-135) conjugate vaccine (MCV4P) 2020-12-29 00:00:00 Completed [facility] PPD (TB) 2020-12-29 00:00:00 Completed [facility] TDAP 2020-12-29 00:00:00 Completed [facility] Meningococcal Polysaccharide (groups A, C, Y and W-135) conjugate vaccine (MCV4P) 2020-12-29 00:00:00 Completed [facility] PPD (TB) 2020-12-29 00:00:00 Completed [facility] TDAP 2020-12-29 00:00:00 Completed [facility] Meningococcal Polysaccharide (groups A, C, Y and W-135) conjugate vaccine (MCV4P) 2020-12-29 00:00:00 Completed [facility] PPD (TB) 2020-12-29 00:00:00 Completed [facility] TDAP 2020-12-29 00:00:00 Completed [facility] Meningococcal Polysaccharide (groups A, C, Y and W-135) conjugate vaccine (MCV4P) 2020-12-29 00:00:00 Completed [facility] PPD (TB) 2020-12-29 00:00:00 Completed [facility] TDAP 2020-12-29 00:00:00 Completed [facility] Meningococcal Polysaccharide (groups A, C, Y and W-135) conjugate vaccine (MCV4P) 2020-12-29 00:00:00 Completed [facility] PPD (TB) 2020-12-29 00:00:00 Completed [facility] TDAP 2020-12-29 00:00:00 Completed [facility] Meningococcal Polysaccharide (groups A, C, Y and W-135) conjugate vaccine (MCV4P) 2020-12-29 00:00:00 Completed [facility] PPD (TB) 2020-12-29 00:00:00 Completed [facility] TDAP 2020-12-29 00:00:00 Completed [facility] Meningococcal Polysaccharide (groups A, C, Y and W-135) conjugate vaccine (MCV4P) 2020-12-29 00:00:00 Completed [facility] PPD (TB) 2020-12-29 00:00:00 Completed [facility] TDAP 2020-12-29 00:00:00 Completed [facility] Meningococcal Polysaccharide (groups A, C, Y and W-135) conjugate vaccine (MCV4P) 2020-12-29 00:00:00 Completed [facility] PPD (TB) 2020-12-29 00:00:00 Completed [facility] TDAP 2020-12-29 00:00:00 Completed [facility] Meningococcal Polysaccharide (groups A, C, Y and W-135) conjugate vaccine (MCV4P) 2020-12-29 00:00:00 Completed [facility] PPD (TB) 2020-12-29 00:00:00 Completed [facility] TDAP 2020-12-29 00:00:00 Completed [facility] Meningococcal Polysaccharide (groups A, C, Y and W-135) conjugate vaccine (MCV4P) 2020-12-29 00:00:00 Completed [facility] PPD (TB) 2020-12-29 00:00:00 Completed [facility] TDAP 2020-12-29 00:00:00 Completed [facility] Meningococcal Polysaccharide (groups A, C, Y and W-135) conjugate vaccine (MCV4P) 2020-12-29 00:00:00 Completed [facility] PPD (TB) 2020-12-29 00:00:00 Completed [facility] TDAP 2020-12-29 00:00:00 Completed [facility] Meningococcal Polysaccharide (groups A, C, Y and W-135) conjugate vaccine (MCV4P) 2020-12-29 00:00:00 Completed [facility] PPD (TB) 2020-12-29 00:00:00 Completed [facility] TDAP 2020-12-29 00:00:00 Completed [facility] Meningococcal Polysaccharide (groups A, C, Y and W-135) conjugate vaccine (MCV4P) 2020-12-29 00:00:00 Completed [facility] PPD (TB) 2020-12-29 00:00:00 Completed [facility] TDAP 2020-12-29 00:00:00 Completed [facility] Meningococcal Polysaccharide (groups A, C, Y and W-135) conjugate vaccine (MCV4P) 2020-12-29 00:00:00 Completed [facility] PPD (TB) 2020-12-29 00:00:00 Completed [facility] TDAP 2020-12-29 00:00:00 Completed [facility] Meningococcal Polysaccharide (groups A, C, Y and W-135) conjugate vaccine (MCV4P) 2020-12-29 00:00:00 Completed [facility] PPD (TB) 2020-12-29 00:00:00 Completed [facility] TDAP 2020-12-29 00:00:00 Completed [facility] Meningococcal Polysaccharide (groups A, C, Y and W-135) conjugate vaccine (MCV4P) 2020-12-29 00:00:00 Completed [facility] PPD (TB) 2020-12-29 00:00:00 Completed [facility] SARS-COV-2 COVID-19 PFIZER VACCINE 2020-12-21 00:00:00 Completed [facility] SARS-COV-2 COVID-19 PFIZER VACCINE 2020-12-21 00:00:00 Completed [facility] SARS-COV-2 COVID-19 PFIZER VACCINE 2020-12-21 00:00:00 Completed [facility] SARS-COV-2 COVID-19 PFIZER VACCINE 2020-12-21 00:00:00 Completed [facility] SARS-COV-2 COVID-19 PFIZER VACCINE 2020-12-21 00:00:00 Completed [facility] SARS-COV-2 COVID-19 PFIZER VACCINE 2020-12-21 00:00:00 Completed [facility] SARS-COV-2 COVID-19 PFIZER VACCINE 2020-12-21 00:00:00 Completed [facility] SARS-COV-2 COVID-19 PFIZER VACCINE 2020-12-21 00:00:00 Completed [facility] SARS-COV-2 COVID-19 PFIZER VACCINE 2020-12-21 00:00:00 Completed [facility] SARS-COV-2 COVID-19 PFIZER VACCINE 2020-12-21 00:00:00 Completed [facility] SARS-COV-2 COVID-19 PFIZER VACCINE 2020-12-21 00:00:00 Completed [facility] SARS-COV-2 COVID-19 PFIZER VACCINE 2020-12-21 00:00:00 Completed [facility] SARS-COV-2 COVID-19 PFIZER VACCINE 2020-12-21 00:00:00 Completed [facility] SARS-COV-2 COVID-19 PFIZER VACCINE 2020-12-21 00:00:00 Completed [facility] SARS-COV-2 COVID-19 PFIZER VACCINE 2020-12-21 00:00:00 Completed [facility] SARS-COV-2 COVID-19 PFIZER VACCINE 2020-12-21 00:00:00 Completed [facility] SARS-COV-2 COVID-19 PFIZER VACCINE 2020-11-29 00:00:00 Completed [facility] SARS-COV-2 COVID-19 PFIZER VACCINE 2020-11-29 00:00:00 Completed [facility] SARS-COV-2 COVID-19 PFIZER VACCINE 2020-11-29 00:00:00 Completed [facility] SARS-COV-2 COVID-19 PFIZER VACCINE 2020-11-29 00:00:00 Completed [facility] SARS-COV-2 COVID-19 PFIZER VACCINE 2020-11-29 00:00:00 Completed [facility] SARS-COV-2 COVID-19 PFIZER VACCINE 2020-11-29 00:00:00 Completed [facility] SARS-COV-2 COVID-19 PFIZER VACCINE 2020-11-29 00:00:00 Completed [facility] SARS-COV-2 COVID-19 PFIZER VACCINE 2020-11-29 00:00:00 Completed [facility] SARS-COV-2 COVID-19 PFIZER VACCINE 2020-11-29 00:00:00 Completed [facility] SARS-COV-2 COVID-19 PFIZER VACCINE 2020-11-29 00:00:00 Completed [facility] SARS-COV-2 COVID-19 PFIZER VACCINE 2020-11-29 00:00:00 Completed [facility] SARS-COV-2 COVID-19 PFIZER VACCINE 2020-11-29 00:00:00 Completed [facility] SARS-COV-2 COVID-19 PFIZER VACCINE 2020-11-29 00:00:00 Completed [facility] SARS-COV-2 COVID-19 PFIZER VACCINE 2020-11-29 00:00:00 Completed [facility] SARS-COV-2 COVID-19 PFIZER VACCINE 2020-11-29 00:00:00 Completed [facility] SARS-COV-2 COVID-19 PFIZER VACCINE 2020-11-29 00:00:00 Completed [facility] Influenza Virus Vaccine Quad IM 3+ YRS 2020-05-13 00:00:00 Completed [facility] Influenza Virus Vaccine Quad IM 3+ YRS 2020-05-13 00:00:00 Completed [facility] Influenza Virus Vaccine Quad IM 3+ YRS 2020-05-13 00:00:00 Completed [facility] Influenza Virus Vaccine Quad IM 3+ YRS 2020-05-13 00:00:00 Completed [facility] Influenza Virus Vaccine Quad IM 3+ YRS 2020-05-13 00:00:00 Completed [facility] Influenza Virus Vaccine Quad IM 3+ YRS 2020-05-13 00:00:00 Completed [facility] Influenza Virus Vaccine Quad IM 3+ YRS 2020-05-13 00:00:00 Completed [facility] Influenza Virus Vaccine Quad IM 3+ YRS 2020-05-13 00:00:00 Completed [facility] Influenza Virus Vaccine Quad IM 3+ YRS 2020-05-13 00:00:00 Completed [facility] Influenza Virus Vaccine Quad IM 3+ YRS 2020-05-13 00:00:00 Completed [facility] Influenza Virus Vaccine Quad IM 3+ YRS 2020-05-13 00:00:00 Completed [facility] Influenza Virus Vaccine Quad IM 3+ YRS 2020-05-13 00:00:00 Completed [facility] Influenza Virus Vaccine Quad IM 3+ YRS 2020-05-13 00:00:00 Completed [facility] Influenza Virus Vaccine Quad IM 3+ YRS 2020-05-13 00:00:00 Completed [facility] Influenza Virus Vaccine Quad IM 3+ YRS 2020-05-13 00:00:00 Completed [facility] Influenza Virus Vaccine Quad IM 3+ YRS 2020-05-13 00:00:00 Completed [facility] Influenza Virus Vaccine 2019-05-23 00:00:00 Completed [facility] Influenza Virus Vaccine 2019-05-23 00:00:00 Completed [facility] Influenza Virus Vaccine 2019-05-23 00:00:00 Completed [facility] Influenza Virus Vaccine 2019-05-23 00:00:00 Completed [facility] Influenza Virus Vaccine 2019-05-23 00:00:00 Completed [facility] Influenza Virus Vaccine 2019-05-23 00:00:00 Completed [facility] Influenza Virus Vaccine 2019-05-23 00:00:00 Completed [facility] Influenza Virus Vaccine 2019-05-23 00:00:00 Completed [facility] Influenza Virus Vaccine 2019-05-23 00:00:00 Completed [facility] Influenza Virus Vaccine 2019-05-23 00:00:00 Completed [facility] Influenza Virus Vaccine 2019-05-23 00:00:00 Completed [facility] Influenza Virus Vaccine 2019-05-23 00:00:00 Completed [facility] Influenza Virus Vaccine 2019-05-23 00:00:00 Completed [facility] Influenza Virus Vaccine 2019-05-23 00:00:00 Completed [facility] Influenza Virus Vaccine 2019-05-23 00:00:00 Completed [facility] Influenza Virus Vaccine 2019-05-23 00:00:00 Completed [facility] Meningococcal Polysaccharide (groups A, C, Y and W-135) conjugate vaccine (MCV4P) Unknown Completed [facility] PPD (TB) Unknown Completed [facility] HEP B, Adult Dosage Unknown Completed [facility] Influenza Virus Vaccine Quad IM 3+ YRS Unknown Completed [facility] Influenza Virus Vaccine Unknown Completed [facility] Influenza Virus Vaccine Quad IM 3+ YRS Unknown Completed [facility] Influenza Virus Vaccine Unknown Completed [facility] Influenza Virus Vaccine Quad IM, Preserv and ABX Free 6 MO-64 YRS (FLUCELVAX) Unknown Completed [facility] Influenza Virus Vaccine Quad IM 3+ YRS Unknown Completed [facility] Influenza Virus Vaccine Unknown Completed [facility] Varicella (varivax)(chicken pox) Unknown Completed [facility] SARS-COV-2 COVID-19 PFIZER VACCINE Unknown Completed [facility] SARS-COV-2 COVID-19 PFIZER VACCINE Unknown Completed [facility] TDAP Unknown Completed [facility] Meningococcal Polysaccharide (groups A, C, Y and W-135) conjugate vaccine (MCV4P) Unknown Completed [facility] PPD (TB) Unknown Completed [facility] HEP B, Adult Dosage Unknown Completed [facility] Influenza Virus Vaccine Quad IM 3+ YRS Unknown Completed [facility] Influenza Virus Vaccine Unknown Completed [facility] Influenza Virus Vaccine Quad IM 3+ YRS Unknown Completed [facility] Influenza Virus Vaccine Unknown Completed [facility] Influenza Virus Vaccine Quad IM, Preserv and ABX Free 6 MO-64 YRS (FLUCELVAX) Unknown Completed [facility] Influenza Virus Vaccine Quad IM 3+ YRS Unknown Completed [facility] Influenza Virus Vaccine Unknown Completed [facility] Varicella (varivax)(chicken pox) Unknown Completed [facility] SARS-COV-2 COVID-19 PFIZER VACCINE Unknown Completed [facility] SARS-COV-2 COVID-19 PFIZER VACCINE Unknown Completed [facility] TDAP Unknown Completed [facility] Meningococcal Polysaccharide (groups A, C, Y and W-135) conjugate vaccine (MCV4P) Unknown Completed [facility] PPD (TB) Unknown Completed [facility] HEP B, Adult Dosage Unknown Completed [facility] Influenza Virus Vaccine Quad IM 3+ YRS Unknown Completed [facility] Influenza Virus Vaccine Unknown Completed [facility] Influenza Virus Vaccine Quad IM 3+ YRS Unknown Completed [facility] Influenza Virus Vaccine Unknown Completed [facility] Influenza Virus Vaccine Quad IM, Preserv and ABX Free 6 MO-64 YRS (FLUCELVAX) Unknown Completed [facility] Influenza Virus Vaccine Quad IM 3+ YRS Unknown Completed [facility] Influenza Virus Vaccine Unknown Completed [facility] Varicella (varivax)(chicken pox) Unknown Completed [facility] SARS-COV-2 COVID-19 PFIZER VACCINE Unknown Completed [facility] SARS-COV-2 COVID-19 PFIZER VACCINE Unknown Completed [facility] TDAP Unknown Completed [facility] Meningococcal Polysaccharide (groups A, C, Y and W-135) conjugate vaccine (MCV4P) Unknown Completed [facility] PPD (TB) Unknown Completed [facility] HEP B, Adult Dosage Unknown Completed [facility] Influenza Virus Vaccine Quad IM 3+ YRS Unknown Completed [facility] Influenza Virus Vaccine Unknown Completed [facility] Influenza Virus Vaccine Quad IM 3+ YRS Unknown Completed [facility] Influenza Virus Vaccine Unknown Completed [facility] Influenza Virus Vaccine Quad IM, Preserv and ABX Free 6 MO-64 YRS (FLUCELVAX) Unknown Completed [facility] Influenza Virus Vaccine Quad IM 3+ YRS Unknown Completed [facility] Influenza Virus Vaccine Unknown Completed [facility] Varicella (varivax)(chicken pox) Unknown Completed [facility] SARS-COV-2 COVID-19 PFIZER VACCINE Unknown Completed [facility] SARS-COV-2 COVID-19 PFIZER VACCINE Unknown Completed [facility] TDAP Unknown Completed [facility] Meningococcal Polysaccharide (groups A, C, Y and W-135) conjugate vaccine (MCV4P) Unknown Completed [facility] PPD (TB) Unknown Completed [facility] HEP B, Adult Dosage Unknown Completed [facility] Influenza Virus Vaccine Quad IM 3+ YRS Unknown Completed [facility] Influenza Virus Vaccine Unknown Completed [facility] Influenza Virus Vaccine Quad IM 3+ YRS Unknown Completed [facility] Influenza Virus Vaccine Unknown Completed [facility] Influenza Virus Vaccine Quad IM, Preserv and ABX Free 6 MO-64 YRS (FLUCELVAX) Unknown Completed [facility] Influenza Virus Vaccine Quad IM 3+ YRS Unknown Completed [facility] Influenza Virus Vaccine Unknown Completed [facility] Varicella (varivax)(chicken pox) Unknown Completed [facility] SARS-COV-2 COVID-19 PFIZER VACCINE Unknown Completed [facility] SARS-COV-2 COVID-19 PFIZER VACCINE Unknown Completed [facility] TDAP Unknown Completed [facility] Meningococcal Polysaccharide (groups A, C, Y and W-135) conjugate vaccine (MCV4P) Unknown Completed [facility] PPD (TB) Unknown Completed [facility] HEP B, Adult Dosage Unknown Completed [facility] Influenza Virus Vaccine Quad IM 3+ YRS Unknown Completed [facility] Influenza Virus Vaccine Unknown Completed [facility] Influenza Virus Vaccine Quad IM 3+ YRS Unknown Completed [facility] Influenza Virus Vaccine Unknown Completed [facility] Influenza Virus Vaccine Quad IM, Preserv and ABX Free 6 MO-64 YRS (FLUCELVAX) Unknown Completed [facility] Influenza Virus Vaccine Quad IM 3+ YRS Unknown Completed [facility] Influenza Virus Vaccine Unknown Completed [facility] Varicella (varivax)(chicken pox) Unknown Completed [facility] SARS-COV-2 COVID-19 PFIZER VACCINE Unknown Completed [facility] SARS-COV-2 COVID-19 PFIZER VACCINE Unknown Completed [facility] TDAP Unknown Completed [facility] Meningococcal Polysaccharide (groups A, C, Y and W-135) conjugate vaccine (MCV4P) Unknown Completed [facility] PPD (TB) Unknown Completed [facility] HEP B, Adult Dosage Unknown Completed [facility] Influenza Virus Vaccine Quad IM 3+ YRS Unknown Completed [facility] Influenza Virus Vaccine Unknown Completed [facility] Influenza Virus Vaccine Quad IM 3+ YRS Unknown Completed [facility] Influenza Virus Vaccine Unknown Completed [facility] Influenza Virus Vaccine Quad IM, Preserv and ABX Free 6 MO-64 YRS (FLUCELVAX) Unknown Completed [facility] Influenza Virus Vaccine Quad IM 3+ YRS Unknown Completed [facility] Influenza Virus Vaccine Unknown Completed [facility] Varicella (varivax)(chicken pox) Unknown Completed [facility] SARS-COV-2 COVID-19 PFIZER VACCINE Unknown Completed [facility] SARS-COV-2 COVID-19 PFIZER VACCINE Unknown Completed [facility] TDAP Unknown Completed [facility] Meningococcal Polysaccharide (groups A, C, Y and W-135) conjugate vaccine (MCV4P) Unknown Completed [facility] PPD (TB) Unknown Completed [facility] HEP B, Adult Dosage Unknown Completed [facility] Influenza Virus Vaccine Quad IM 3+ YRS Unknown Completed [facility] Influenza Virus Vaccine Unknown Completed [facility] Influenza Virus Vaccine Quad IM 3+ YRS Unknown Completed [facility] Influenza Virus Vaccine Unknown Completed [facility] Influenza Virus Vaccine Quad IM, Preserv and ABX Free 6 MO-64 YRS (FLUCELVAX) Unknown Completed [facility] Influenza Virus Vaccine Quad IM 3+ YRS Unknown Completed [facility] Influenza Virus Vaccine Unknown Completed [facility] Varicella (varivax)(chicken pox) Unknown Completed [facility] SARS-COV-2 COVID-19 PFIZER VACCINE Unknown Completed [facility] SARS-COV-2 COVID-19 PFIZER VACCINE Unknown Completed [facility] TDAP Unknown Completed [facility] Meningococcal Polysaccharide (groups A, C, Y and W-135) conjugate vaccine (MCV4P) Unknown Completed [facility] PPD (TB) Unknown Completed [facility] HEP B, Adult Dosage Unknown Completed [facility] Influenza Virus Vaccine Quad IM 3+ YRS Unknown Completed [facility] Influenza Virus Vaccine Unknown Completed [facility] Influenza Virus Vaccine Quad IM 3+ YRS Unknown Completed [facility] Influenza Virus Vaccine Unknown Completed [facility] Influenza Virus Vaccine Quad IM, Preserv and ABX Free 6 MO-64 YRS (FLUCELVAX) Unknown Completed [facility] Influenza Virus Vaccine Quad IM 3+ YRS Unknown Completed [facility] Influenza Virus Vaccine Unknown Completed [facility] Varicella (varivax)(chicken pox) Unknown Completed [facility] SARS-COV-2 COVID-19 PFIZER VACCINE Unknown Completed [facility] SARS-COV-2 COVID-19 PFIZER VACCINE Unknown Completed [facility] TDAP Unknown Completed [facility] Meningococcal Polysaccharide (groups A, C, Y and W-135) conjugate vaccine (MCV4P) Unknown Completed [facility] PPD (TB) Unknown Completed [facility] HEP B, Adult Dosage Unknown Completed [facility] Influenza Virus Vaccine Quad IM 3+ YRS Unknown Completed [facility] Influenza Virus Vaccine Unknown Completed [facility] Influenza Virus Vaccine Quad IM 3+ YRS Unknown Completed [facility] Influenza Virus Vaccine Unknown Completed [facility] Influenza Virus Vaccine Quad IM, Preserv and ABX Free 6 MO-64 YRS (FLUCELVAX) Unknown Completed [facility] SARS-COV-2 COVID-19 PFIZER VACCINE Unknown Completed [facility] SARS-COV-2 COVID-19 PFIZER VACCINE Unknown Completed [facility] TDAP Unknown Completed [facility] Meningococcal Polysaccharide (groups A, C, Y and W-135) conjugate vaccine (MCV4P) Unknown Completed [facility] PPD (TB) Unknown Completed [facility] HEP B, Adult Dosage Unknown Completed [facility] Influenza Virus Vaccine Quad IM 3+ YRS Unknown Completed [facility] Influenza Virus Vaccine Unknown Completed [facility] Influenza Virus Vaccine Quad IM 3+ YRS Unknown Completed [facility] Influenza Virus Vaccine Unknown Completed [facility] SARS-COV-2 COVID-19 PFIZER VACCINE Unknown Completed [facility] SARS-COV-2 COVID-19 PFIZER VACCINE Unknown Completed [facility] TDAP Unknown Completed [facility] Meningococcal Polysaccharide (groups A, C, Y and W-135) conjugate vaccine (MCV4P) Unknown Completed [facility] PPD (TB) Unknown Completed [facility] Influenza Virus Vaccine Quad IM 3+ YRS Unknown Completed [facility] Influenza Virus Vaccine Unknown Completed [facility] SARS-COV-2 COVID-19 PFIZER VACCINE Unknown Completed [facility] SARS-COV-2 COVID-19 PFIZER VACCINE Unknown Completed [facility] Influenza Virus Vaccine Quad IM 3+ YRS Unknown Completed [facility] Influenza Virus Vaccine Unknown Completed [facility] SARS-COV-2 COVID-19 PFIZER VACCINE Unknown Completed [facility] Influenza Virus Vaccine Quad IM 3+ YRS Unknown Completed [facility] Influenza Virus Vaccine Unknown Completed [facility] SARS-COV-2 COVID-19 PFIZER VACCINE Unknown Completed [facility] Influenza Virus Vaccine Quad IM 3+ YRS Unknown Completed [facility] Influenza Virus Vaccine Unknown Completed [facility] SARS-COV-2 COVID-19 PFIZER VACCINE Unknown Completed [facility] Influenza Virus Vaccine Quad IM 3+ YRS Unknown Completed [facility] Influenza Virus Vaccine Unknown Completed [facility] SARS-COV-2 COVID-19 PFIZER VACCINE Unknown Completed [facility] SARS-COV-2 COVID-19 PFIZER VACCINE Unknown Completed [facility] TDAP Unknown Completed [facility] Meningococcal Polysaccharide (groups A, C, Y and W-135) conjugate vaccine (MCV4P) Unknown Completed [facility] PPD (TB) Unknown Completed [facility] HEP B, Adult Dosage Unknown Completed [facility] Influenza Virus Vaccine Quad IM 3+ YRS Unknown Completed [facility] Influenza Virus Vaccine Unknown Completed [facility] Influenza Virus Vaccine Quad IM 3+ YRS Unknown Completed [facility] [facility] Influenza Virus Vaccine Unknown Completed [facility] Influenza Virus Vaccine Quad IM, Preserv and ABX Free 6 MO-64 YRS (FLUCELVAX) Unknown Completed [facility] SARS-COV-2 COVID-19 PFIZER VACCINE Unknown Completed [facility] SARS-COV-2 COVID-19 PFIZER VACCINE Unknown Completed [facility] TDAP Unknown Completed [facility] Meningococcal Polysaccharide (groups A, C, Y and W-135) conjugate vaccine (MCV4P) Unknown Completed [facility] PPD (TB) Unknown Completed [facility] HEP B, Adult Dosage Unknown Completed [facility] Influenza Virus Vaccine Quad IM 3+ YRS Unknown Completed [facility] Influenza Virus Vaccine Unknown Completed [facility] Influenza Virus Vaccine Quad IM 3+ YRS Unknown Completed [facility] Influenza Virus Vaccine Unknown Completed [facility] Influenza Virus Vaccine Quad IM, Preserv and ABX Free 6 MO-64 YRS (FLUCELVAX) Unknown Completed [facility] SARS-COV-2 COVID-19 PFIZER VACCINE Unknown Completed [facility] SARS-COV-2 COVID-19 PFIZER VACCINE Unknown Completed [facility] TDAP Unknown Completed [facility] Meningococcal Polysaccharide (groups A, C, Y and W-135) conjugate vaccine (MCV4P) Unknown Completed [facility] PPD (TB) Unknown Completed [facility] HEP B, Adult Dosage Unknown Completed [facility] Influenza Virus Vaccine Quad IM 3+ YRS Unknown Completed [facility] Influenza Virus Vaccine Unknown Completed [facility] Influenza Virus Vaccine Quad IM 3+ YRS Unknown Completed [facility] Influenza Virus Vaccine Unknown Completed [facility] Influenza Virus Vaccine Quad IM, Preserv and ABX Free 6 MO-64 YRS (FLUCELVAX) Unknown Completed [facility] SARS-COV-2 COVID-19 PFIZER VACCINE Unknown Completed [facility] SARS-COV-2 COVID-19 PFIZER VACCINE Unknown Completed [facility] TDAP Unknown Completed [facility] Meningococcal Polysaccharide (groups A, C, Y and W-135) conjugate vaccine (MCV4P) Unknown Completed [facility] PPD (TB) Unknown Completed [facility] HEP B, Adult Dosage Unknown Completed [facility] Influenza Virus Vaccine Quad IM 3+ YRS Unknown Completed [facility] Influenza Virus Vaccine Unknown Completed [facility] Influenza Virus Vaccine Quad IM 3+ YRS Unknown Completed [facility] Influenza Virus Vaccine Unknown Completed [facility] Influenza Virus Vaccine Quad IM, Preserv and ABX Free 6 MO-64 YRS (FLUCELVAX) Unknown Completed [facility] Influenza Virus Vaccine Quad IM 3+ YRS Unknown Completed [facility] Influenza Virus Vaccine Unknown Completed [facility] SARS-COV-2 COVID-19 PFIZER VACCINE Unknown Completed [facility] SARS-COV-2 COVID-19 PFIZER VACCINE Unknown Completed [facility] TDAP Unknown Completed [facility] Meningococcal Polysaccharide (groups A, C, Y and W-135) conjugate vaccine (MCV4P) Unknown Completed [facility] PPD (TB) Unknown Completed [facility] HEP B, Adult Dosage Unknown Completed [facility] Influenza Virus Vaccine Quad IM 3+ YRS Unknown Completed [facility] Influenza Virus Vaccine Unknown Completed [facility] Influenza Virus Vaccine Quad IM 3+ YRS Unknown Completed [facility] Influenza Virus Vaccine Unknown Completed [facility] Influenza Virus Vaccine Quad IM, Preserv and ABX Free 6 MO-64 YRS (FLUCELVAX) Unknown Completed [facility] Influenza Virus Vaccine Quad IM 3+ YRS Unknown Completed [facility] Influenza Virus Vaccine Unknown Completed [facility] SARS-COV-2 COVID-19 PFIZER VACCINE Unknown Completed [facility] SARS-COV-2 COVID-19 PFIZER VACCINE Unknown Completed [facility] TDAP Unknown Completed [facility] Meningococcal Polysaccharide (groups A, C, Y and W-135) conjugate vaccine (MCV4P) Unknown Completed [facility] PPD (TB) Unknown Completed [facility] HEP B, Adult Dosage Unknown Completed [facility] Influenza Virus Vaccine Quad IM 3+ YRS Unknown Completed [facility] Influenza Virus Vaccine Unknown Completed [facility] Influenza Virus Vaccine Quad IM 3+ YRS Unknown Completed [facility] Influenza Virus Vaccine Unknown Completed [facility] Influenza Virus Vaccine Quad IM, Preserv and ABX Free 6 MO-64 YRS (FLUCELVAX) Unknown Completed [facility] Influenza Virus Vaccine Quad IM 3+ YRS Unknown Completed [facility] Influenza Virus Vaccine Unknown Completed [facility] SARS-COV-2 COVID-19 PFIZER VACCINE Unknown Completed [facility] SARS-COV-2 COVID-19 PFIZER VACCINE Unknown Completed [facility] TDAP Unknown Completed [facility] Meningococcal Polysaccharide (groups A, C, Y and W-135) conjugate vaccine (MCV4P) Unknown Completed [facility] PPD (TB) Unknown Completed [facility] HEP B, Adult Dosage Unknown Completed [facility] Influenza Virus Vaccine Quad IM 3+ YRS Unknown Completed [facility] Influenza Virus Vaccine Unknown Completed [facility] Influenza Virus Vaccine Quad IM 3+ YRS Unknown Completed [facility] Influenza Virus Vaccine Unknown Completed [facility] Influenza Virus Vaccine Quad IM, Preserv and ABX Free 6 MO-64 YRS (FLUCELVAX) Unknown Completed [facility] Influenza Virus Vaccine Quad IM 3+ YRS Unknown Completed [facility] Influenza Virus Vaccine Unknown Completed [facility] SARS-COV-2 COVID-19 PFIZER VACCINE Unknown Completed [facility] SARS-COV-2 COVID-19 PFIZER VACCINE Unknown Completed [facility] TDAP Unknown Completed [facility] Meningococcal Polysaccharide (groups A, C, Y and W-135) conjugate vaccine (MCV4P) Unknown Completed [facility] PPD (TB) Unknown Completed [facility] HEP B, Adult Dosage Unknown Completed [facility] Influenza Virus Vaccine Quad IM 3+ YRS Unknown Completed [facility] Influenza Virus Vaccine Unknown Completed [facility] Influenza Virus Vaccine Quad IM 3+ YRS Unknown Completed [facility] Influenza Virus Vaccine Unknown Completed [facility] Influenza Virus Vaccine Quad IM, Preserv and ABX Free 6 MO-64 YRS (FLUCELVAX) Unknown Completed [facility] Influenza Virus Vaccine Quad IM 3+ YRS Unknown Completed [facility] Influenza Virus Vaccine Unknown Completed [facility] Varicella (varivax)(chicken pox) Unknown Completed [facility] SARS-COV-2 COVID-19 PFIZER VACCINE Unknown Completed [facility] SARS-COV-2 COVID-19 PFIZER VACCINE Unknown Completed [facility] TDAP Unknown Completed [facility] Meningococcal Polysaccharide (groups A, C, Y and W-135) conjugate vaccine (MCV4P) Unknown Completed [facility] PPD (TB) Unknown Completed [facility] HEP B, Adult Dosage Unknown Completed [facility] Influenza Virus Vaccine Quad IM 3+ YRS Unknown Completed [facility] Influenza Virus Vaccine Unknown Completed [facility] Influenza Virus Vaccine Quad IM 3+ YRS Unknown Completed [facility] Influenza Virus Vaccine Unknown Completed [facility] Influenza Virus Vaccine Quad IM, Preserv and ABX Free 6 MO-64 YRS (FLUCELVAX) Unknown Completed [facility] Influenza Virus Vaccine Quad IM 3+ YRS Unknown Completed [facility] Influenza Virus Vaccine Unknown Completed [facility] Varicella (varivax)(chicken pox) Unknown Completed [facility] SARS-COV-2 COVID-19 PFIZER VACCINE Unknown Completed [facility] SARS-COV-2 COVID-19 PFIZER VACCINE Unknown Completed [facility] TDAP Unknown Completed [facility] Vital Signs Vital Name Observation Time Observation Value Comments S ource Systolic blood pressure 2023 20:12:00 136 mm[Hg] [facility] Diastolic blood pressure 2023 20:12:00 69 mm[Hg] [facility] Heart rate 2023 20:12:00 99 /min [facility] Body temperature 2023 20:12:00 37.17 Mima [facility] Respiratory rate 2023 20:12:00 14 /min [facility] Body height 2023 20:12:00 167.6 cm [facility] Body weight 2023 20:12:00 76.204 kg [facility] BMI 2023 20:12:00 27.12 kg/m2 [facility] Oxygen saturation in Arterial blood by Pulse oximetry 2023 20:12:00 97 /min [facility] Systolic blood pressure 2023-08-13 20:54:00 126 mm[Hg] [facility] Diastolic blood pressure 2023-08-13 20:54:00 85 mm[Hg] [facility] Heart rate 2023-08-13 20:54:00 88 /min [facility] Body temperature 2023-08-13 20:54:00 36.78 Mima [facility] Body height 2023-08-13 20:54:00 167.6 cm [facility] Body weight 2023-08-13 20:54:00 74.934 kg [facility] BMI 2023-08-13 20:54:00 26.66 kg/m2 [facility] Oxygen saturation in Arterial blood by Pulse oximetry 2023-08-13 20:54:00 98 /min [facility] Systolic blood pressure 2023-07-19 16:55:00 107 mm[Hg] [facility] Diastolic blood pressure 2023-07-19 16:55:00 66 mm[Hg] [facility] Heart rate 2023-07-19 16:55:00 69 /min [facility] Body temperature 2023-07-19 16:55:00 36.72 Mima [facility] Body height 2023-07-19 16:55:00 167.6 cm [facility] Body weight 2023-07-19 16:55:00 78.472 kg [facility] BMI 2023-07-19 16:55:00 27.92 kg/m2 [facility] Systolic blood pressure 2023-07-18 20:50:00 126 mm[Hg] [facility] Diastolic blood pressure 2023-07-18 20:50:00 80 mm[Hg] [facility] Heart rate 2023-07-18 20:50:00 93 /min [facility] Body temperature 2023-07-18 20:50:00 36.22 Mima [facility] Respiratory rate 2023-07-18 20:50:00 14 /min [facility] Body height 2023-07-18 20:50:00 167.6 cm [facility] Body weight 2023-07-18 20:50:00 76.295 kg [facility] BMI 2023-07-18 20:50:00 27.15 kg/m2 [facility] Oxygen saturation in Arterial blood by Pulse oximetry 2023-07-18 20:50:00 99 /min [facility] Systolic blood pressure 2023-07-02 21:35:00 127 mm[Hg] [facility] Diastolic blood pressure 2023-07-02 21:35:00 85 mm[Hg] [facility] Heart rate 2023-07-02 21:34:00 84 /min [facility] Body height 2023-07-02 21:34:00 167.6 cm [facility] Body weight 2023-07-02 21:34:00 78.2 kg [facility] BMI 2023-07-02 21:34:00 27.83 kg/m2 [facility] Oxygen saturation in Arterial blood by Pulse oximetry 2023-07-02 21:34:00 97 /min [facility] Systolic blood pressure 2023-03-23 20:28:00 116 mm[Hg] [facility] Diastolic blood pressure 2023-03-23 20:28:00 79 mm[Hg] [facility] Heart rate 2023-03-23 20:27:00 80 /min [facility] Body height 2023-03-23 20:27:00 167.6 cm [facility] Body weight 2023-03-23 20:27:00 76.794 kg [facility] BMI 2023-03-23 20:27:00 27.33 kg/m2 [facility] Oxygen saturation in Arterial blood by Pulse oximetry 2023-03-23 20:27:00 98 /min [facility] Heart rate 2023-01-17 18:15:00 112 /min [facility] Respiratory rate 2023-01-17 18:15:00 19 /min [facility] Oxygen saturation in Arterial blood by Pulse oximetry 2023-01-17 18:15:00 97 /min [facility] Systolic blood pressure 2023-01-17 18:04:05 135 mm[Hg] [facility] Diastolic blood pressure 2023-01-17 18:04:05 76 mm[Hg] [facility] Body temperature 2023-01-17 14:26:00 37.28 Mima [facility] Body weight 2023-01-17 14:26:00 76.204 [facility] 2023-01-17 14:26:00 27.12 kg/m2 [facility] Systolic blood pressure 2022-05-02 15:00:00 126 mm[Hg] [facility] Diastolic blood pressure 2022-05-02 15:00:00 83 mm[Hg] [facility] Heart rate 2022-05-02 14:56:00 80 /min [facility] Body height 2022-05-02 14:56:00 167.6 cm [facility] Body weight 2022-05-02 14:56:00 76.204 kg [facility] BMI 2022-05-02 14:56:00 27.12 kg/m2 [facility] Oxygen saturation in Arterial blood by Pulse oximetry 2022-05-02 14:56:00 98 /min [facility] Systolic blood pressure 2022-04-04 15:09:00 143 mm[Hg] [facility] Diastolic blood pressure 2022-04-04 15:09:00 88 mm[Hg] [facility] Heart rate 2022-04-04 15:09:00 76 /min [facility] Body temperature 2022-04-04 15:09:00 36.67 Mima [facility] Respiratory rate 2022-04-04 15:09:00 16 /min [facility] Body height 2022-04-04 15:09:00 167.6 cm [facility] Body weight 2022-04-04 15:09:00 76.159 kg [facility] BMI 2022-04-04 15:09:00 27.10 kg/m2 [facility] Oxygen saturation in Arterial blood by Pulse oximetry 2022-04-04 15:09:00 99 /min [facility] Procedures Procedure Date / Time Performed Performing Clinician Source POCT SARS-COV-2 ANTIGEN (BINAX NOW) 2023 20:15:00 Haylee Cervantes [facility] VARICELLA (VARIVAX)(CHICKEN POX) VACCINE 2023-07-19 17:04:40 Selena Haas [facility] ASSIGNMENT OF BENEFITS 2023-07-02 21:28:44 Docto r Unassigned, Bond [facility] ASSIGNMENT OF BENEFITS 2023-01-17 15:07:17 Docto r Unassigned, Bond [facility] LIPASE 2023-01-17 14:41:00 Mari Osullivan Un [facility] COMP. METABOLIC PANEL (96703) 2023-01-17 14:41:00 Mari Osullivan [facility] CBC WITH DIFF 2023-01-17 14:41:00 Mari Osullivan U [facility] NOTICE OF PRIVACY PRACTICES 2023-01-17 14:23:26 Doctor Unassigned, Bond [facility] CONSENT/REFUSAL FOR DIAGNOSIS AND TREATMENT 2023-01-17 14:21:42 Doctor Unassigned, Bond [facility] COMP. METABOLIC PANEL ([id number]) 2022-05-02 15:47:00 Arlette Schmidt [facility] CBC WITH DIFF 2022-05-02 15:47:00 [facility] ASSIGNMENT OF BENEFITS 2022-05-02 14:32:54 Docto r Unassigned, Bond [facility] URINALYSIS MICROSCOPIC 2022-04-04 15:22:00 Mireille Fortune [facility] POCT URINALYSIS 2022-04-04 00:00:00 Haylee Cervantes [facility] Encounters Start Date/Time End Date/Time Encounter Type Admission Type Attending Clinicians Care Facility Care Department Encounter ID Source 2021-05-23 15:35:00 Emergency [facility] [id number] [facility] 2021-05-22 05:52:01 Emergency [facility] [id number] [facility] 2023-11-01 00:00:00 2023-11-01 00:00:00 Refill Arlette Schmidt [facility] 1..840.114 350.1.13.10 4.2.7.2.686 [id number] [facility] 2023-11-01 00:00:00 2023-11-01 00:00:00 Refill Roseanne Vaz [facility] 1..840.114 350.1.13.10 4.2.7.2.686 [id number] [facility] 2023-10-24 00:00:00 2023-10-24 00:00:00 Refill Sofia [facility] 1.2.840.114 350.1.13.10 4.2.7.2.686 [id number] [facility] 2023-09-25 00:00:00 2023-09-25 00:00:00 Refill Arlette Schmidt [facility] R[facility]AN?[facility] 1.2840.114 350.1.13.10 4.2.7.2.686 [id number] [facility] 2023-09-25 00:00:00 2023-09-25 00:00:00 Refill Lisset Mclaughlin [facility] 1.2840.114 350.1.13.10 4.2.7.2.686 [id number] [facility] 2023-08-28 00:00:00 2023-08-28 00:00:00 Patient Secure Msg Vaz Roseanne [facility] R[facility]AN?[facility] 1.2.840.114 350.1.13.10 4.2.7.2.686 [id number] [facility] 2023 14:00:00 2023 14:25:29 Outpatient R LISSET MCLAUGHLIN [facility] [id number] [facility] 2023 14:00:00 2023 14:25:29 Urgent Care Lisset Mclaughlin, Attending [facility] 1.2.840.114 350.1.13.10 4.2.7.2.686 [id number] [facility] 2023-08-13 14:40:00 2023-08-13 15:10:23 Outpatient R ROSEANNE VAZ CHRISTINE [facility] [id number] [facility] 2023-08-13 14:40:00 2023-08-13 15:10:23 Office Visit Roseanne Vaz [facility] 1..840.114 350.1.13.10 4.2.7.2.686 [id number] [facility] 2023-07-19 10:45:00 2023-07-19 12:28:11 Outpatient R TERACASSANDRASELENA [facility] [id number] [facility] 2023-07-19 10:45:00 2023-07-19 12:28:11 Office Visit CeceliajessicaSelena [facility] 1.840.114 350.1.13.10 4.2.7.2.686 [id number] [facility] 2023-07-18 14:40:00 2023-07-18 15:17:21 Outpatient R BETH AMAYA [facility] [id number] [facility] 2023-07-18 14:40:00 2023-07-18 15:00:00 Urgent Care Beth Amaya Unknown, Attending [facility] 1..840.114 350.1.13.10 4.2.7.2.686 [id number] [facility] 2023-07-18 00:00:00 2023-07-18 00:00:00 Arlette Padilla [facility] 1..840.114 350.1.13.10 4.2.7.2.686 [id number] [facility] 2023-07-07 00:00:00 2023-07-07 00:00:00 [facility] 1.2.840.114 350.1.13.10 4.2.7.2.686 [id number] [facility] 2023-07-05 00:00:00 2023-07-05 00:00:00 Pre Visit Outreach Jerri Srivastava 1.2.840.114 350.1.13.10 4.2.7.2.686 [id number] [facility] 2023-07-02 15:40:00 2023-07-02 16:44:11 [facility] [id number] [facility] 2023-07-02 15:40:00 2023-07-02 16:44:11 Office Visit Sofia [facility] 1.2.840.114 350.1.13.10 4.2.7.2.686 [id number] [facility] 2023-07-02 00:00:00 2023-07-02 00:00:00 Orders Only Doctor Unassigned, Bond [facility] 1.2.840.114 350.1.13.10 4.2.7.2.686 [id number] [facility] 2023-04-14 00:00:00 2023-04-14 00:00:00 [facility] 1.2.840.114 350.1.13.10 4.2.7.2.686 [id number] [facility] 2023-03-23 16:00:00 2023-03-23 17:40:45 Outpatient ROSEANNE WATERS ROSEANNE [facility] [id number] [facility] 2023-03-23 16:00:00 2023-03-23 17:40:45 Housekeeper Nanny Visit Lab, Ang - Db Sofia [facility] 1..840.114 350.1.13.10 4.2.7.2.686 [id number] [facility] 2023-03-23 15:20:00 2023-03-23 15:59:39 Office Visit Sofia [facility] MEDICAL OFFICE BUILDING 1..840.114 350.1.13.10 4.2.7.2.686 [id number] [id number] [facility] 2023-01-17 09:26:00 2023-01-17 13:30:00 Emergency X MARI OSULLIVAN [facility] [id number] [facility] 2023-01-17 09:26:00 2023-01-17 13:30:00 Emergency Mari Osullivan [facility] 1..840.114 350.1.13.10 4.2.7.2.686 [id number] [facility] 2023-01-17 09:40:00 2023-01-17 09:40:00 Outpatient R KADEEM ALVAREZ [facility] [id number] [facility] 2022-09-26 16:00:00 2022-09-26 16:00:00 Outpatient ARLETTE LAZAR [facility] [id number] [facility] 2022-08-11 00:00:00 2022-08-11 00:00:00 Selena Iqbal [facility] MEDICAL OFFICE BUILDING 1..840.114 350.1.13.10 4.2.7.2.686 [id number] [id number] [facility] 2022-05-26 00:00:00 2022-05-26 00:00:00 Arlette Padilla [facility] MEDICAL OFFICE BUILDING 1.0.114 350.1.13.10 4.2.7.2.686 [id number] [id number] [facility] 2022-05-03 00:00:00 2022-05-03 00:00:00 [facility] MEDICAL OFFICE BUILDING 1.0.114 350.1.13.10 4.2.7.2.686 [id number] 044 [id number] [facility] 2022-05-02 10:45:00 2022-05-02 11:00:00 Housekeeper Nanny Visit Lab, Adama Linder Maria L SchmidtFormerly [facility] MEDICAL OFFICE BUILDING 1.114 350.1.13.10 4.2.7.2.686 [id number] [facility] 2022-05-02 09:30:00 2022-05-02 10:39:27 [facility] [id number] [facility] 2022-05-02 09:30:00 2022-05-02 10:39:27 Office Visit Maria L SchmidtFormerly [facility] MEDICAL OFFICE BUILDING 1..114 350.1.13.10 4.2.7.2.686 [id number] 044 [id number] [facility] 2022-05-02 00:00:00 2022-05-02 00:00:00 Orders Only Doctor Unassigned, Bond [facility] 1..114 350.1.13.10 4.2.7.2.686 [id number] [facility] 2022-04-06 00:00:00 2022-04-06 00:00:00 Telephone Mireille Fortuney [facility] RYAN?[facility] MEDICAL OFFICE BUILDING 1.0.114 350.1.13.10 4.2.7.2.686 [id number] [facility] 2022-04-04 09:40:00 2022-04-04 10:49:58 Outpatient R HAYLEE CERVANTES [facility] [id number] [facility] 2022-04-04 09:40:00 2022-04-04 10:49:58 Urgent Care [facility] MEDICAL OFFICE BUILDING 1..840.114 350.1.13.10 4.2.7.2.686 [id number] 370 [id number] [facility] 2022-04-04 09:40:00 2022-04-04 10:49:58 Outpatient R HAYLEE CERVANTES [facility] [id number] [facility] 2022-03-21 15:30:00 2022-03-21 15:30:00 Outpatient R ARLETTE SCHMIDT [facility] [id number] [facility] 2022-01-26 00:00:00 2022-01-26 00:00:00 Refill Selena Haas [facility] MEDICAL OFFICE BUILDING 1..840.114 350.1.13.10 4.2.7.2.686 [id number] 044 [id number] [facility] 2022-01-18 00:00:00 2022-01-18 00:00:00 Refill Pepe Gavin [facility] 1..840.114 350.1.13.10 4.2.7.2.686 [id number] [id number] [facility] 2022-01-07 00:00:00 2022-01-07 00:00:00 Telephone Liudmila To [facility] 1..840.114 350.1.13.10 4.2.7.2.686 [id number] [facility] 2022-01-06 16:40:00 2022-01-06 18:13:37 Outpatient R HAYLEE CERVANTES [facility] [id number] [facility] 2022-01-06 16:40:00 2022-01-06 17:00:00 Urgent Care Haylee Cervantes [facility] BUILDING 1..840.114 350.1.13.10 4.2.7.2.686 [id number] [facility] 2022-01-06 10:00:00 2022-01-06 10:00:00 Outpatient R TONG LAI [facility] [id number] [facility] 2021-12-31 00:00:00 2021-12-31 00:00:00 Refill Selena Haas [facility] MED[facility] OFF[facility] BUILDING 1..840.114 350.1.13.10 4.2.7.2.686 [id number] 044 [id number] [facility] 2021-12-15 16:00:00 2021-12-15 16:00:00 Outpatient R SHINARIC [facility] [id number] [facility] 2021-12-15 00:00:00 2021-12-15 00:00:00 Refill Maria L SchmidtFormerly [facility] MEDICAL OFFICE BUILDING 1..840.114 350.1.13.10 4.2.7.2.686 [id number] [id number] [facility] 2021-11-10 13:30:00 2021-11-10 13:30:00 Outpatient R ROXANA ARLETTE [facility] [id number] [facility] 2021-11-09 00:00:00 2021-11-09 00:00:00 Refill Pepe Gavin [facility] MEDICAL OFFICE BUILDING 1..840.114 350.1.13.10 4.2.7.2.686 [id number] 044 [id number] [facility] 2021-11-08 13:30:00 2021-11-08 14:58:29 Outpatient R ARLETTE SCHMIDT [facility] [id number] [facility] 2021-11-08 13:30:00 2021-11-08 14:58:29 [facility] MEDICAL OFFICE BUILDING 1.2.840.114 350.1.13.10 4.2.7.2.686 [id number] [id number] [facility] 2021-11-08 13:30:00 2021-11-08 14:58:29 Outpatient R ARLETTE SCHMIDT [facility] [id number] [facility] 2021-11-08 14:30:00 2021-11-08 14:45:00 Housekeeper Nanny Visit Lab, Adama Linder [facility] MEDICAL OFFICE BUILDING 1..840.114 350.1.13.10 4.2.7.2.686 [id number] [facility] 2021-11-02 00:00:00 2021-11-02 00:00:00 [facility]ill [facility] MEDICAL OFFICE BUILDING 1..840.114 350.1.13.10 4.2.7.2.686 [id number] 044 [id number] [facility] 2021-10-11 10:15:00 2021-10-11 10:30:00 Housekeeper Nanny Visit Lab, Adama [facility]AN?[facility] MEDICAL OFFICE BUILDING 1.2.840.114 350.1.13.10 4.2.7.2.686 [id number] [facility] 2021-10-11 09:30:00 2021-10-11 10:18:11 Outpatient R EMIARLETTE PADILLA [facility] [id number] [facility] 2021-10-11 09:30:00 2021-10-11 10:18:11 [facility] [place] [facility] 1..840.114 350.1.13.10 4.2.7.2.686 [id number] [id number] [facility] 2021-10-11 09:30:00 2021-10-11 10:18:11 Outpatient R [facility] [id number] [facility] 2021-10-11 09:30:00 2021-10-11 10:18:11 Outpatient R ROXANA [facility] [id number] [facility] 2021-10-04 00:00:00 2021-10-04 00:00:00 Selena Iqbal [facility] OFFICE BUILDING ONE 1..840.114 350.1.13.10 4.2.7.2.686 [id number] [facility] 2021-09-28 00:00:00 2021-09-28 00:00:00 Telephone Mark Calvin [facility] 1..840.114 350.1.13.10 4.2.7.2.686 [id number] [facility] 2021-09-25 20:40:00 2021-09-25 20:36:26 Outpatient R DARLING GRAHAM [facility] [id number] [facility] 2021-09-19 14:00:00 2021-09-19 14:00:00 Outpatient SELENA MCCLELLAND [facility] [id number] [facility] 2021-08-25 00:00:00 2021-08-25 00:00:00 Patient Secure Ming Kaur [facility] BUILD[facility] 1..840.114 350.1.13.10 4.2.7.2.686 [id number] [facility] 2021-08-24 14:56:01 2021-08-24 23:59:00 [facility] [id number] [facility] 2021-08-24 14:56:01 2021-08-24 23:59:00 Hospital Encounter Tico [facility] BUILDING 1..840.114 350.1.13.10 4.2.7.2.686 [id number] [facility] 2021-08-23 14:00:00 2021-08-23 14:00:00 [facility] [id number] [facility] 2021 15:40:00 2021 15:43:11 Outpatient R SELENA HAAS [facility] [id number] [facility] 2021 15:40:00 2021 15:43:11 Nurse Visit Nurse, Adama Haas [facility] RYAN?[facility] BUILDING 1..840.114 350.1.13.10 4.2.7.2.686 [id number] 044 [id number] [facility] 2021 15:40:00 2021 15:40:00 Outpatient R [facility] [id number] [facility] 2021 00:00:00 2021 00:00:00 Telephone Selena Haas [facility] OFFICE BUILDING ONE ..840.114 350.1.13.10 4.2.7.2.686 [id number] 044 [id number] [facility] 2021 00:00:00 2021 00:00:00 Patient Secure Msfarheen Doshi [facility] BUILDING 1.2.840.114 350.1.13.10 4.2.7.2.686 [id number] [id number] [facility] 2021-08-16 14:30:00 2021-08-16 14:30:00 Housekeeper Nanny Visit 2, [facility] 1.2.840.114 350.1.13.10 4.2.7.2.686 [id number] [facility] 2021-08-16 13:20:00 2021-08-16 13:59:32 Outpatient R TICO [facility] [id number] [facility] 2021-08-16 13:20:00 2021-08-16 13:59:32 Office Visit Tico [facility] 1.2.840.114 350.1.13.10 4.2.7.2.686 [id number] [facility] 2021-08-16 13:20:00 2021-08-16 13:59:32 [facility] [id number] [facility] 2021-08-16 00:00:00 2021-08-16 00:00:00 Orders Only Doctor Unassigned, Bond [facility] 1..840.114 350.1.13.10 4.2.7.2.686 [id number] [facility] 2021-08-15 13:30:00 2021-08-15 13:30:00 Outpatient MAGDALENA MORAN [facility] [id number] [facility] 2021-08-15 13:30:00 2021-08-15 13:30:00 [facility] [id number] [facility] 2021-08-15 11:40:00 2021-08-15 11:40:00 [facility] [id number] [facility] 2021-08-15 10:00:00 2021-08-15 10:00:00 Outpatient ALETHA WEBER [facility] [id number] [facility] 2021-07-02 00:00:00 2021-07-02 00:00:00 Refill Homer [facility] OFFICE BUILDING ONE 1.840.114 350.1.13.10 4.2.7.2.686 [id number] 044 [id number] [facility] 2021-05-19 00:00:00 2021-05-19 00:00:00 Refill Homer [facility] OFFICE BUILDING ONE 1.84.114 350.1.13.10 4.2.7.2.686 [id number] [id number] [facility] 2021-04-29 00:00:00 2021-04-29 00:00:00 Telephone Homer [facility] Rayn?[facility] 1.84.114 350.1.13.10 4.2.7.2.686 [id number] 044 [id number] [facility] 2021-04-29 00:00:00 2021-04-29 00:00:00 Orders Only Doctor Unassigned, Bond [facility] 1.84114 350.1.13.10 4.2.7.2.686 [id number] [facility] 2021-04-14 15:58:19 2021-04-14 16:50:30 Office Visit Jose [facility] Ryan?[facility] 1.84.114 350.1.13.10 4.2.7.2.686 [id number] 044 [id number] [facility] 2021-04-14 16:00:00 2021-04-14 16:00:00 Outpatient R ARLETTE SCHMIDT [facility] [id number] [facility] 2021-04-14 00:00:00 2021-04-14 00:00:00 Orders Only Doctor Unassigned, Bond [facility] 1.840.114 350.1.13.10 4.2.7.2.686 [id number] [facility] 2021-04-12 00:00:00 2021-04-12 00:00:00 Trena Haas [facility] Office Building One .840.114 350.1.13.10 4.2.7.2.686 [id number] 044 [id number] [facility] 2021-04-01 14:44:37 2021-04-01 16:48:06 Urgent Care Kin [facility] Ryan[facility] 1.840.114 350.1.13.10 4.2.7.2.686 [id number] [facility] 2021-04-01 16:00:00 2021-04-01 16:00:00 Outpatient R [facility] [id number] [facility] 2021-04-01 00:00:00 2021-04-01 00:00:00 Orders Only Doctor Unassigned, Bond [facility] .840.114 350.1.13.10 4.2.7.2.686 [id number] [id number] [facility] 2021-03-27 00:00:00 2021-03-27 00:00:00 Trena Haas [facility] Office Building One .840.114 350.1.13.10 4.2.7.2.686 [id number] [facility] 2021-03-08 00:00:00 2021-03-08 00:00:00 Patient Secure Msg Doctor Unassigned, Bond [facility] 1.114 350.1.13.10 4.2.7.2.686 [id number] [facility] 2021-03-05 22:42:00 2021-03-06 00:53:[address] Beck [facility] 1.114 350.1.13.10 4.2.7.2.686 [id number] [facility] 2021-03-05 18:53:31 2021-03-05 19:13:31 Urgent Care Haylee Cervantes, Attending [facility] Office Building One .114 350.1.13.10 4.2.7.2.686 [id number] 044 [id number] [facility] 2021-03-05 19:00:00 2021-03-05 19:00:00 Outpatient Luis Enrique ALVAREZ, KADEEM [facility] [id number] [facility] 2021-02-16 11:00:00 2021-02-16 11:00:00 Outpatient SELENA MCCLELLAND [facility] [id number] [facility] 2021-02-15 11:00:00 2021-02-15 11:20:00 Nurse Visit Nurse, Pat Peterson PoSelena Rasmussen [facility] Office Building One .114 350.1.13.10 4.2.7.2.686 [id number] [facility] 2021-02-15 11:00:00 2021-02-15 11:00:00 Outpatient SELENA MCCLELLAND [facility] [id number] [facility] 2021-01-11 00:00:00 2021-01-11 00:00:00 Telephone Selena Haas [facility] Office Building One .114 350.1.13.10 4.2.7.2.686 [id number] 044 [id number] [facility] 2021-01-06 00:00:00 2021-01-06 00:00:00 Refill Homer [facility] Office Building One 1.0.114 350.1.13.10 4.2.7.2.686 [id number] 044 [id number] [facility] 2020-12-31 09:56:23 2020-12-31 10:16:23 Nurse Visit Nurse, [facility] Nicolas Haas [facility] Office Building One 1.114 350.1.13.10 4.2.7.2.686 [id number] 044 [id number] [facility] 2020-12-31 08:00:00 2020-12-31 08:00:00 Outpatient R [facility] [id number] [facility] 2020-12-31 00:00:00 2020-12-31 00:00:00 Letter (Out) Homer [facility] Office Building One 1.114 350.1.13.10 4.2.7.2.686 [id number] 044 [id number] [facility] 2020-12-29 16:22:58 2020-12-29 16:33:40 Housekeeper Nanny Visit Lab, [facility] Nicolas Haas [facility] Office Building One 1.114 350.1.13.10 4.2.7.2.686 [id number] 044 [id number] [facility] 2020-12-29 15:44:38 2020-12-29 16:21:34 Office Visit Homer [facility] Office Building One 1.0.114 350.1.13.10 4.2.7.2.686 [id number] [facility] 2020-12-29 15:45:00 2020-12-29 15:45:00 Outpatient R CECELIAJESSICASELENA [facility] [id number] [facility] 2020-12-29 00:00:00 2020-12-29 00:00:00 RefSelena Tao [facility] Office Building One .840.114 350.1.13.10 4.2.7.2.686 [id number] 044 [id number] [facility] 2020-12-23 00:00:00 2020-12-23 00:00:00 Patient Secure Selena Macias [facility] OFFICE BUILDING ONE .114 350.1.13.10 4.2.7.2.686 [id number] [facility] 2020-12-21 14:40:00 2020-12-21 14:40:00 Outpatient R MAGDALENA POLO [facility] [id number] [facility] 2020-12-21 11:30:00 2020-12-21 11:30:00 Outpatient R [facility] [id number] [facility] 2020-12-14 14:21:39 2020-12-14 14:36:39 Office Visit Selena Haas [facility] Office Building One .84.114 350.1.13.10 4.2.7.2.686 [id number] [facility] 2020-12-14 14:15:00 2020-12-14 14:15:00 Outpatient R SELENA HAAS [facility] [id number] [facility] 2020-12-03 00:00:00 2020-12-03 00:00:00 Patient Secure Selena Macias [facility] OFFICE BUILDING ONE .84.114 350.1.13.10 4.2.7.2.686 [id number] 044 [id number] [facility] 2020-12-03 00:00:00 2020-12-03 00:00:00 Patient Secure Msg Selena Haas [facility] OFFICE BUILDING ONE 1.840.114 350.1.13.10 4.2.7.2.686 [id number] [facility] 2020-11-30 00:00:00 2020-11-30 00:00:00 Patient Secure Msg Doctor Unassigned, Bond [facility] 1.840.114 350.1.13.10 4.2.7.2.686 [id number] [id number] [facility] 2020-11-29 14:25:00 2020-11-29 14:25:00 Outpatient MAGDALENA MORAN [facility] [id number] [facility] 2020-11-29 13:49:17 2020-11-29 14:04:17 Office Visit Selena Haas [facility] Office Building One 1.840.114 350.1.13.10 4.2.7.2.686 [id number] [id number] [facility] 2020-11-29 13:45:00 2020-11-29 13:45:00 Outpatient R SELENA HAAS [facility] [id number] [facility] 2020-11-24 18:45:01 2020-11-24 19:05:01 Urgent Care Darling Graham [facility] Office Building One 1.840.114 350.1.13.10 4.2.7.2.686 [id number] 044 [id number] [facility] 2020-11-24 19:00:00 2020-11-24 19:00:00 Outpatient R DARLING GRAHAM [facility] [id number] [facility] 2020-10-03 12:50:00 2020-10-03 23:59:00 Hospital Encounter Calvin Flores [facility] 1..840.114 350.1.13.10 4.2.7.2.686 [id number] [facility] 2020-10-03 12:22:19 2020-10-03 12:56:06 Urgent Care Provider, [facility] Tong [facility] Office Building One 1..840.114 350.1.13.10 4.2.7.2.686 [id number] 044 [id number] [facility] 2020-10-03 11:20:00 2020-10-03 11:20:00 Outpatient R TONG LAI [facility] [id number] [facility] 2020-09-29 21:20:00 2020-09-29 21:20:00 Outpatient R SELENA EDWARDS III [facility] [id number] [facility] 2020-09-25 10:52:20 2020-09-25 11:12:20 Laboratory Only Lab, Adc Fam Pob I Tong [facility] Office Building One 1..840.114 350.1.13.10 4.2.7.2.686 [id number] [facility] 2020-09-25 10:40:00 2020-09-25 10:40:00 Outpatient R TONG LAI [facility] [id number] [facility] 2020-09-23 17:40:00 2020-09-23 17:40:00 Outpatient R DARLING GRAHAM [facility] [id number] [facility] 2020-07-29 10:00:00 2020-07-29 10:00:00 Outpatient R MARIA LUISA HENRY [facility] [id number] [facility] 2020-07-02 08:27:22 2020-07-02 09:19:32 Office Visit Henry, Maria Luisa [facility] 1.114 350.1.13.10 4.2.7.2.686 [id number] [facility] 2020-07-02 08:30:00 2020-07-02 08:30:00 Outpatient Luis Enrique HENRYAMRIA LUISA WALDEN [facility] [id number] [facility] 2020-06-25 15:00:00 2020-06-25 15:00:00 Outpatient SELENA MCCLELLAND [facility] [id number] [facility] 2020-06-23 10:00:15 2020-06-23 10:20:15 Laboratory Only Lab, [facility] .114 350.1.13.10 4.2.7.2.686 [id number] 044 [id number] [facility] 2020-06-23 10:00:00 2020-06-23 10:00:00 [facility] [id number] [facility] 2020-05-12 00:00:00 2020-05-12 00:00:00 Selena Iqbal [facility] Office Building One 1.114 350.1.13.10 4.2.7.2.686 [id number] 044 [id number] [facility] 2020-05-04 08:22:03 2020-05-04 08:42:03 Laboratory Only Lab, Adc [facility] Office Building One .114 350.1.13.10 4.2.7.2.686 [id number] [facility] 2020-05-04 08:20:00 2020-05-04 08:20:00 Outpatient R [facility] [id number] [facility] 2020-04-26 00:00:00 2020-04-26 00:00:00 Refill Selena Haas [facility] Office Building One 1.84.114 350.1.13.10 4.2.7.2.686 [id number] [id number] [facility] 2020-04-14 11:30:13 2020-04-14 11:45:13 Office Visit Selena Haas [facility] Office Building One 1.114 350.1.13.10 4.2.7.2.686 [id number] 044 [id number] [facility] 2020-04-14 11:30:00 2020-04-14 11:30:00 Outpatient R SELENA HAAS [facility] [id number] [facility] 2020-02-17 16:00:00 2020-02-17 16:00:00 Outpatient R STEPHEN RIOS [facility] [id number] [facility] 2020-02-08 16:37:23 2020-02-08 16:57:23 Laboratory Only Lab, Adc Fam Pob I Unknown, Attending [facility] Office Building One 1.84.114 350.1.13.10 4.2.7.2.686 [id number] [id number] [facility] 2020-02-08 16:40:00 2020-02-08 16:40:00 Outpatient R UNKNOWN, ATTENDING [facility] [id number] [facility] 2019-11-14 08:09:10 2019-11-14 08:59:03 Urgent Care Pob1, Acute Care Clinic Dena Martinez [facility] 1.84.114 350.1.13.10 4.2.7.2.686 [id number] [facility] 2019-11-14 08:00:00 2019-11-14 08:00:00 Outpatient R DENA MARTINEZ [facility] [id number] [facility] 2019-11-13 00:00:00 2019-11-13 00:00:00 Telephone Selena Haas femi [facility] 1.0.114 350.1.13.10 4.2.7.2.686 [id number] [facility] 2019-11-07 00:00:00 2019-11-07 00:00:00 Refill Selena Haas [facility] [id number] 350.1.13.10 4.2.7.2.686 [id number] [facility] 2019-10-08 15:06:53 2019-10-08 17:49:49 Office Visit Pob1, Acute Care Clinic Cristy Mcgrath [facility] 1..114 350.1.13.10 4.2.7.2.686 [id number] [facility] 2019-10-08 15:00:00 2019-10-08 15:00:00 Outpatient R [facility] [id number] [facility] 2019-09-02 00:00:00 2019-09-02 00:00:00 Refill Homer [facility] 1..114 350.1.13.10 4.2.7.2.686 [id number] [facility] 2019-08-29 00:00:00 2019-08-29 00:00:00 Refill Selena Haas [facility] 1..114 350.1.13.10 4.2.7.2.686 [id number] 044 [id number] [facility] 2019-08-06 00:00:00 2019-08-06 00:00:00 Refill Selena Haas [facility] 1..114 350.1.13.10 4.2.7.2.686 [id number] 044 [id number] [facility] 2019-03-13 00:00:00 2019-03-13 00:00:00 Orders Only Doctor Unassigned, Bond [facility] 1.2.840.114 350.1.13.10 4.2.7.2.686 [id number] [facility] 2019-03-07 11:16:47 2019-03-07 11:48:21 Office Visit [facility] One 1.2840.114 350.1.13.10 4.2.7.2.686 [id number] 044 [id number] [facility] 2019-03-06 00:00:00 2019-03-06 00:00:00 Telephone Homer [facility] 1.2840.114 350.1.13.10 4.2.7.2.686 [id number] 044 [id number] [facility] 2019-02-27 09:22:09 2019-02-27 09:37:09 Office Visit Selena Haas [facility] 1.2.840.114 350.1.13.10 4.2.7.2.686 [id number] 044 [id number] [facility] 2019-02-20 10:22:47 2019-02-20 10:58:11 Office Visit Selena Haas [facility] 1.2.840.114 350.1.13.10 4.2.7.2.686 [id number] 044 [id number] [facility] Results Test Description Test Time Test Comments Results Result Co mments Source [facility] ([id number])2022-05-02 19:29:14* Test Item Value Reference Range Interpretation Comme nts NA (test code = 3403253698) 141 mmol/L 135-145 K (test code = 1147309230) 4.6 mmol/L 3.5-5 CL (test code = 1665344964) 101 mmol/L 98-108 CO2 TOTAL (test code = 1968922089) 26 mmol/L 23-31 AGAP (test code = 1771509342) 2-16 BUN (test code = 7209406136) 15 mg/dL 7-23 GLUCOSE (test code = 8413215772) 99 mg/dL 70-110 CREATININE (test code = 0722848041) 0.86 mg/dL 0.6-1.25 TOTAL BILI (test code = 2078623872) 0.6 mg/dL 0.1-1.1 CALCIUM (test code = 9275571570) 10.2 mg/dL 8.6-10.6 T PROTEIN (test code = 3657806151) 8.7 g/dL 6.3-8.2 H ALBUMIN (test code = 2322546198) 5.2 g/dL 3.5-5 H ALK PHOS (test code = 8363073379) 58 U/L 34-122 ALTv (test code = 1742-6) 32 U/L 5-50 AST(SGOT) (test code = 7006603018) 29 U/L 13-40 eGFR (test code = 6927700675) mL/min/1.73m2 MAVIS (test code = MAVIS) Association of Glomerular Filtration Rate (GFR) and Staging of Kidney Disease* + --+ --+ ------+| GFR (mL/min/1.73 m2) ?| With Kidney Damage ?| ?Without Kidney Damage+ --------+ --------+ +| ?>90 ?| ?Stage one ?| ? Normal ?+ ---+ ---+ -------+| ?60-89 ?| ?Stage two ?| ? Decreased GFR ? + --+ --+ ------+| ?30-59 ?| ?Stage three ?| ? Stage three ? + --+ --+ ------+| ?15-29 ?| ?Stage four ? | ? Stage four ?+ ---+ ---+ -------+| ?<15 (or dialysis) ? ?| ?Stage five ? | ? Stage five ?+ ---+ ---+ -------+ *Each stage assumes the associated GFR level has been in effect for at least three months. ?Stages 1 to 5, with or without kidney disease, indicate chronic kidney disease. Notes: Determination of stages one and two (with eGFR >59mL/min/1.73 m2) requires estimation of kidney damage for at least three months as defined by structural or functional abnormalities of the kidney, manifested by either:Pathological abnormalities or Markers of kidney damage (including abnormalities in the composition of the blood or urine or abnormalities in imaging tests). Lab Interpretation (test code = 99857-1) [facility]normal [facility] ([id number])2022-05-02 19:29:14* Test Item Value Reference Range Interpretation Comme nts NA (test code = 9691516585) 141 mmol/L 135-145 K (test code = 0437070322) 4.6 mmol/L 3.5-5 CL (test code = 9676381193) 101 mmol/L 98-108 CO2 TOTAL (test code = 4887512945) 26 mmol/L 23-31 AGAP (test code = 5386176833) 2-16 BUN (test code = 4312562596) 15 mg/dL 7-23 GLUCOSE (test code = 4181983693) 99 mg/dL 70-110 CREATININE (test code = 4801271305) 0.86 mg/dL 0.6-1.25 TOTAL BILI (test code = 1101971384) 0.6 mg/dL 0.1-1.1 CALCIUM (test code = 6893006144) 10.2 mg/dL 8.6-10.6 T PROTEIN (test code = 5151548341) 8.7 g/dL 6.3-8.2 H ALBUMIN (test code = 4342728565) 5.2 g/dL 3.5-5 H ALK PHOS (test code = 1762733197) 58 U/L 34-122 ALTv (test code = 1742-6) 32 U/L 5-50 AST(SGOT) (test code = 5028244005) 29 U/L 13-40 eGFR (test code = 0368420353) mL/min/1.73m2 MAVIS (test code = MAVIS) Association of Glomerular Filtration Rate (GFR) and Staging of Kidney Disease* + --+ --+ ------+| GFR (mL/min/1.73 m2) ?| With Kidney Damage ?| ?Without Kidney Damage+ --------+ --------+ +| ?>90 ?| ?Stage one ?| ? Normal ?+ ---+ ---+ -------+| ?60-89 ?| ?Stage two ?| ? Decreased GFR ? + --+ --+ ------+| ?30-59 ?| ?Stage three ?| ? Stage three ? + --+ --+ ------+| ?15-29 ?| ?Stage four ? | ? Stage four ?+ ---+ ---+ -------+| ?<15 (or dialysis) ? ?| ?Stage five ? | ? Stage five ?+ ---+ ---+ -------+ *Each stage assumes the associated GFR level has been in effect for at least three months. ?Stages 1 to 5, with or without kidney disease, indicate chronic kidney disease. Notes: Determination of stages one and two (with eGFR >59mL/min/1.73 m2) requires estimation of kidney damage for at least three months as defined by structural or functional abnormalities of the kidney, manifested by either:Pathological abnormalities or Markers of kidney damage (including abnormalities in the composition of the blood or urine or abnormalities in imaging tests). Lab Interpretation (test code = 44540-5) Abnormal [facility] acute [facility] WITH QDCJ5437-00-06 19:16:56* Test Item Value Reference Range Interpretation Comme nts WBC (test code = 6690-2) See_Comment [[employer]] The system which generated this result transmitted reference range: 4.20 - 10.70 10*3/?L. The reference range was not used to interpret this result as normal/abnormal. RBC (test code = 789-8) See_Comment [Automated [employer]] The system which generated this result transmitted reference range: 4.26 - 5.52 10*6/?L. The reference range was not used to interpret this result as normal/abnormal. HGB (test code = 718-7) 14.3 g/dL 12.2-16.4 HCT (test code = 4544-3) 42.8 % 38.4-49.3 MCV (test code = 787-2) 82.5 fL 81.7-95.6 MCH (test code = 785-6) 27.6 pg 26.1-32.7 MCHC (test code = 786-4) 33.4 g/dL 31.2-35 RDW-SD (test code = 84934-2) 38.0 fL 38.5-51.6 L RDW-CV (test code = 788-0) 12.9 % 12.1-15.4 PLT (test code = 777-3) See_Comment [Automated messa ge] The system which generated this result transmitted reference range: 150 - 328 10*3/?L. The reference range was not used to interpret this result as normal/abnormal. MPV (test code = 05175-9) 10.3 fL 9.8-13 NRBC/100 WBC (test code = 0897217817) See_Comment [Automated [employer] ssage] The system which generated this result transmitted reference range: 0.0 - 10.0 /100 WBCs. The reference range was not used to interpret this result as normal/abnormal. NRBC x10^3 (test code = 5773441307) See_Comment [Automated messa ge] The system which generated this result transmitted reference range: 10*3/?L. The reference range was not used to interpret this result as normal/abnormal. GRAN MAT (NEUT) % (test code = 770-8) 50.6 % IMM GRAN % (test code = 9008321384) 2.00 % LYMPH % (test code = 736-9) 32.2 % MONO % (test code = 5905-5) 9.0 % EOS % (test code = 713-8) 5.1 % BASO % (test code = 706-2) 1.1 % GRAN MAT x10^3(ANC) (test code = 6934668836) 3.25 10*3/uL 1.99-6.95 IMM GRAN x10^3 (test code = 3057067891) 0.13 10*3/uL 0-0.06 H LYMPH x10^3 (test code = 731-0) 2.07 10*3/uL 1.09-3.23 MONO x10^3 (test code = 742-7) 0.58 10*3/uL 0.36-1.02 EOS x10^3 (test code = 711-2) 0.33 10*3/uL 0.06-0.53 BASO x10^3 (test code = 704-7) 0.07 10*3/uL 0.01-0.09 Lab Interpretation (test code = 26609-5) Abnormal General acute hospital WITH VMOM1175-15-07 19:16:56* Test Item Value Reference Range Interpretation Comme nts WBC (test code = 6690-2) See_Comment [Automated messa ge] The system which generated this result transmitted reference range: 4.20 - 10.70 10*3/?L. The reference range was not used to interpret this result as normal/abnormal. RBC (test code = 789-8) See_Comment [Automated messa ge] The system which generated this result transmitted reference range: 4.26 - 5.52 10*6/?L. The reference range was not used to interpret this result as normal/abnormal. HGB (test code = 718-7) 14.3 g/dL 12.2-16.4 HCT (test code = 4544-3) 42.8 % 38.4-49.3 MCV (test code = 787-2) 82.5 fL 81.7-95.6 MCH (test code = 785-6) 27.6 pg 26.1-32.7 MCHC (test code = 786-4) 33.4 g/dL 31.2-35 RDW-SD (test code = 29669-8) 38.0 fL 38.5-51.6 L RDW-CV (test code = 788-0) 12.9 % 12.1-15.4 PLT (test code = 777-3) See_Comment [Automated messa ge] The system which generated this result transmitted reference range: 150 - 328 10*3/?L. The reference range was not used to interpret this result as normal/abnormal. MPV (test code = 43047-4) 10.3 fL 9.8-13 NRBC/100 WBC (test code = 4953730432) See_Comment [Automated me ssage] The system which generated this result transmitted reference range: 0.0 - 10.0 /100 WBCs. The reference range was not used to interpret this result as normal/abnormal. NRBC x10^3 (test code = 4382642581) See_Comment [Automated messa ge] The system which generated this result transmitted reference range: 10*3/?L. The reference range was not used to interpret this result as normal/abnormal. GRAN MAT (NEUT) % (test code = 770-8) 50.6 % IMM GRAN % (test code = 1525261178) 2.00 % LYMPH % (test code = 736-9) 32.2 % MONO % (test code = 5905-5) 9.0 % EOS % (test code = 713-8) 5.1 % BASO % (test code = 706-2) 1.1 % GRAN MAT x10^3(ANC) (test code = 3390232283) 3.25 10*3/uL 1.99-6.95 IMM GRAN x10^3 (test code = 9912940671) 0.13 10*3/uL 0-0.06 H LYMPH x10^3 (test code = 731-0) 2.07 10*3/uL 1.09-3.23 MONO x10^3 (test code = 742-7) 0.58 10*3/uL 0.36-1.02 EOS x10^3 (test code = 711-2) 0.33 10*3/uL 0.06-0.53 BASO x10^3 (test code = 704-7) 0.07 10*3/uL 0.01-0.09 Lab Interpretation (test code = 91658-8) Abnormal [facility] URINALYSIS W SPECIFIC PZWCWIJ9042-94-91 15:16:00* Test Item Value Reference Range Interpretation Comme nts POCT U SP GRAV (test code = 3255) 1.010 mg/dl 1.005-1.025 POCT PH U (test code = 3254) 5 mg/dl 5-8 POCT U LEUK EST (test code = 3263) trace Negative - Negative POCT U NIT (test code = 3262) negative Negative - Negati ve POCT U PROT (test code = 3259) trace Negative - Negative POCT U GLU (test code = 3256) normal Negative - Negati ve POCT U KETONE (test code = 3258) negative Negative - Negative POCT U UROBILI (test code = 3260) normal 0.2-1 POCT U BILI (test code = 3261) negative Negative - Negative POCT U BLD (test code = 3257) trace Negative - Negati ve POCT U COLOR (test code = 3266) yellow POCT U APPEAR (test code = 3267) clear [facility] Notes Date/Time Note Provider Source 2023-11-02 07:08:13 RWhFqmetbmQ+jc0n3VIE /aMmr3pMeO0uUxc aDVmTlzmvcn0xwYEx7uZSMuPiSl7v0555-9 07:08:13 Last Refilled:pantoprazole 40 mg EC tablet 90 tablet 0 09/26/2023 -- --Sig: Take 1 tablet by mouth in the morning.Sent to pharmacy as: pantoprazole 40 mg tablet,delayed release (PROTONIX)Class: eRXRoute: OralOrder: [id number]/Time Signed: 09/26/2023 08:48E-Prescribing Status: Receipt confirmed by pharmacy (09/26/2023 8:48 AM LIBRARIAN HELPER)Notes:Recent VisitsDate Type Provider Dept08/13/23 Office Visit Roseanne Vaz MD [facility]07/19/23 Office Visit Selena Haas MD [facility]07/02/23 Office Visit Roseanne Vaz MD [facility]03/23/23 Office Visit Roseanne Vaz MD [facility] MedShowing recent visits within past 540 days with a meds authorizing provider and meeting all other requirementsFuture AppointmentsDate Type Provider Dept12/18/23 Appointment Roseanne Vaz MD [facility] MedShowing future appointments within next 150 days with a meds authorizing provider and meeting all other requirements 40487-9Dkwnrnvks encounter GchcEE7423-65-03F03:09:49Telephone encounter NoteTXT1.2.840.240302.1.13.104.2.7. 2.450666|[id number] for patient hzgi41357-7DbjuHSRCYBWTHUCPcxcofksn C-CDA narrative [id number] J Brandy RNUT[address] Cl[id number] 1AVQYNNIFRLPPJPOXDOGIGA6676-70-47A5 7:09:491.2.840.284901.1.72.3.15|1.2 .840.886799.1.13.104.2.7.2.727879_2 [id number] Tasha Lambert Brandy RN [facility] 2023-09-26 08:45:59 8yjjUgTzDN+TufwFv0Ea 6AAYTE2z2mQoyRB UNbyG0a42QZkW57swp4cA0JsjFfSE4582-8 09-25T08:45:59 Images from the original note were not included.Notes: 07/18/23Last Refilled:[facility]/pharmacy #[id number] [address]Phone: Orqabg VisitsDate Type Provider Dept08/13/23 Office Visit Roseanne Vaz MD [facility]07/19/23 Office Visit Selena Haas MD [facility]07/02/23 Office Visit Roseanne Vaz MD [facility]03/23/23 Office Visit Roseanne Vaz MD [facility]05/02/22 Office Visit Arlette Schmidt FNP [facility] MedShowing recent visits within past 540 days with a meds authorizing provider and meeting all other requirementsFuture AppointmentsDate Type Provider Dept12/18/23 Appointment Roseanne Vaz MD [facility] MedShowing future appointments within next 150 days with a meds authorizing provider and meeting all other requirementspantoprazole 40 mg EC tabletSig: Take 1 tablet by mouth in the morning.Disp: 90 tablet Refills: 0Start: 09/25/2023lass: eRXFor: Gastroesophageal reflux disease without esophagitisLast ordered: 2 months ago (07/18/2023) by RAUL Rodriguezastroenterology: Antiulcer - Proton Pump Inhibitors Osmvaa8409/25/2023 11:38 PMProtocol Details Valid encounter within last 12 monthsTo be filled at: None [Patient requested: Trenton Hughes] 22409-0Jscrwqypr encounter CivpNV3454-06-31T72:48:10Telephone encounter NoteTXT1.2.840.661525.1.13.104.2.7. 2.085950|[id number] for patient naox91052-0CnxtEUTUAVELQMQOzzzzcqcw C-CDA narrative [id number] L Cantu [address] Iy[id number] 8GXPZHPBTPLUGKOWEQCOWZC0351-98-02U4 8:48:101.2.840.849463.1.72.3.15|1.2 .840.362182.1.13.104.2.7.2.727879_2 [id number] [place] [facility] 2023-08-29 10:22:11 ClwS/le0vYZs5m5BgLNU l6QsmecpFk4rEDM psALSuwLh3r2hC5OM6YnqxHOKmCqj7691-0 0:22:11 Yes, please schedule patient if we have this vaccination stocked or have her get from health department. 30459-6Lrldwcfzq encounter WcyvZQ6145-04-62G61:23:15Telephone encounter NoteTXT1.2.840.390333.1.13.104.2.7. 2.497914|[id number] for patient ktko36829-3QvmxHRWTSLJWJCGXiuicyrqh C-CDA narrative [id number] 0TMNKYJVZCIWEFNUBKNYLFL8325-05-30R3 0:23:151.2.840.867272.1.72.3.15|1.2 .840.196928.1.13.104.2.7.2.727879_[id number] [facility] 2023-08-28 15:30:00 W3Ih8AIwr02mhR9QALn8 IEjPC6vFmX3EKI5 /UlokPlwO/wznLQ39XSSCEfEDyPRs5500-5 5:30:00 Please review and advise 78187-5Dkzanepwb encounter CmtjLX4259-95-83S65:30:26Telephone encounter NoteTXT1.2.840.716640.1.13.104.2.7. 2.868109|[id number] for patient uyal06849-5YjllJJOMUNUCFOSBacyynjpe C-CDA narrative text[id number] 5KCGPMBAXYHYWNOXSPBUAAP0796-18-37U5 5:30:261.2.840.539829.1.72.3.15|1.[address] .840.436738.1.13.104.2.7.2.727879_[id number] [facility] 2023-03-23 16:00:00 crbPe2dtFo+m8ZaE9Oqj 6QtNGhO1Uc0xuCr nIQLTaoOhRZmgj1yedxYFeeWG2RN12830-6 6:00:00 Patient had and episode during lab work causing work load to run behind 24292-1Nnlfu UposVA4932-43-38S70:02:53Nurse NoteTXT1.2.840.711577.1.13.104.2.7. 2.849111|[id number] for patient mrom30714-5Klnlb NoteLN[address] StreetFuyjJfqvkidtoKzncdyjlbAMGH365098426 6SAKMRABIWOXFPTPZGZVUZR5148-40-56I3 8:02:531.2.840.527295.1.72.3.15|1.[address]840.911411.1.13.104.2.7.2.727879_[id number] [facility]"
[2023-11-19] MEDS ORDERED: MAGNES/ALUMIN/SIMET 30ML UCUP ONE (14:44)
[2023-11-19] MEDS ORDERED: FAMOTIDINE 20 MG/2 ML VIAL IV ONE (14:44)
[2023-11-19] MEDS ORDERED: NA CHLORIDE 0.9% 1,000 ML ONE (14:44)
[2023-11-19 15:00] LABS: Absolute Basophils 0.1 K/uL (0-0.5); Absolute Eosinophils 0.2 K/uL (0-0.5); Absolute Lymphocytes (CBC) 1.8 K/uL (0.7-4.9); Absolute Monocytes 0.5 K/uL (0.1-1.3); Absolute Neutrophil 3.8 K/uL (1.8-8.0); Basophils % 0.9 % (0-1.3); Eosinophils % 3.5 % (0-4.4); Hematocrit 39.5 % (39.6-49.0); Hemoglobin 13.4 g/dL (13.6-17.9); Lymphocytes % 27.9 % (15.3-44.8); MCH 27.8 pg (27.0-35.0); MCHC 33.9 g/dL (32.0-36.0); MCV 82.1 fL (80-100); MPV 7.6 fL (7.6-11.3); Monocytes % 8.5 % (3.3-12.3); Neutrophils % 59.2 % (41.7-73.7); Nucleated Red Blood Cells % 0.2 % (0-0); Platelets 271 thou/uL (152-406); RBC Red Blood Cell Count 4.81 M/uL (4.33-5.43); Red Cell Distribution Width 13.6 % (12.1-15.2)
[2023-11-19 15:06] LABS: Albumin 4.2 g/dL (3.4-5.0); Albumin/Globulin Ratio 1.1 (1.1-1.8); Anion Gap 6.7 mEq/L (5.0-15.0); Bilirubin Total 0.5 mg/dL (0.2-1.0); Globulin 3.9 g/dL (2.3-3.5); Potassium 3.7 mEq/L (3.5-5.1); Protein, Total 8.1 g/dL (6.4-8.2)
--- NOTE | 2023-11-19 16:25 | RAD REPORT ---
EXAM DESCRIPTION: CT - Abdomen Pelvis W Contrast - 11/19/2023 2:55 pm CLINICAL HISTORY: vomiting;Abd pain COMPARISON: No comparisons TECHNIQUE: Thin cut axial CT imaging of the abdomen and pelvis was performed following intravenous a dministration of 100 mL Isovue 300. Multiplanar reformats were generated and reviewed. All CT scans are performed using dose optimization technique as appropriate and may include automated exposure control or mA/KV adjustment according to patient size. FINDINGS: No suspicious findings in the lung bases. The liver, spleen, adrenal glands, and pancreas show no suspicious findings. Gallbladder and biliary tree are also without suspicious finding. Right pelvic kidney is seen with no hydronephrosis or suspicious renal mass. No radiopaque calculi. No dilated bowel loops or bowel wall thickening. No free air, free fluid or inflammatory stranding. N o hernia, mass or bulky lymphadenopathy. The urinary bladder is suboptimally distended, with an ovoid 1.6 cm crescentic cystic component arising from the dome anteriorly, which may represent a grade cys t or small diverticulum. No suspicious bony findings. IMPRESSION: No acute intra-abdominal process. Incidentally noted right pelvic kidney. 1.6 cm crescentic cystic component along the anterior bladder dome, may represent a ureteral cyst or small diverticulum.
--- NOTE | 2023-11-19 16:34 | RAD REPORT ---
EXAM DESCRIPTION: Andrea Single View11/19/2023 3:00 pm CLINICAL HISTORY: CHEST PAIN COMPARISON: No comparisons TECHNIQUE: Portable AP view of the chest. FINDINGS: The lungs are clear. No pneumothorax or effusion. The cardiomediastinal contours are unre markable. IMPRESSION: No acute cardiopulmonary process.
--- NOTE | 2023-11-19 16:48 | ER ---
Nurse's Notes [facility] Name: Fredo Jones Age: 28 yrs Sex: Male : 1995 Arrival Date: 11/19/2023 Time: 14:11 Bed 20 Private MD: Diagnosis: Acute gastritis without bleeding;Esophagitis, unspecified Presentation: 11/18 14:18 Chief complaint: Patient states: Abdominal pain X 4 days - epigastric. When breathing ld1 epigastric pain is severe. Coronavirus screen: At this time, the client does not indicate any symptoms associated with coronavirus-19. Ebola Screen: No symptoms or risks identified at this time. Initial Sepsis Screen: Does the patient meet any 2 criteria? No. Patient's initial sepsis screen is negative. Does the patient have a suspected source of infection? No. Patient's initial sepsis screen is negative. Risk Assessment: Do you want to hurt yourself or someone else? Patient reports no desire to harm self or others. Onset of symptoms was November 19, 2023. 14:18 Method Of Arrival: Ambulatory ld1 14:18 Acuity: DICK 3 ld1 Triage Assessment: 14:19 General: Appears in no apparent distress. comfortable, Behavior is calm, cooperative, ld1 appropriate for age. Pain: Complains of pain in epigastric area Pain does not radiate. Pain currently is 5 out of 10 on a pain scale. at worst was 7 out of 10 on a pain scale. Quality of pain is described as throbbing, Pain began suddenly, Is continuous. EENT: No signs and/or symptoms were reported regarding the EENT system. Neuro: Level of Consciousness is awake, alert, obeys commands, Oriented to person, place, time, situation. Cardiovascular: Capillary refill < 3 seconds Patient's skin is warm and dry. Respiratory: Airway is patent Respiratory effort is even, unlabored. GI: Abdomen is flat, non-distended, Reports upper abdominal pain, nausea, vomiting. GI: Reports epigastric pain. : No signs and/or symptoms were reported regarding the genitourinary system. Derm: No signs and/or symptoms reported regarding the dermatologic system. Musculoskeletal: No signs and/or symptoms reported regarding the musculoskeletal system. Historical: - Allergies: 14:19 No Known Allergies; ld1 - PMHx: 14:19 Anxiety; Depressive disorder; Hypertensive disorder; GERD; ld1 - PSHx: 14:19 None; ld1 - Immunization history:: Adult Immunizations up to date. - Infectious Disease History:: Denies. - Social history:: Smoking status: Patient denies any tobacco usage or history of. - Family history:: not pertinent. - Hospitalizations: : No recent hospitalization is reported. Screenin:20 [facility] ED Fall Risk Assessment (Adult) History of falling in the last 3 months, rs5 including since admission No falls in past 3 months (0 pts) Confusion or Disorientation No (0 pts) Intoxicated or Sedated No (0 pts) Impaired Gait No (0 pts) Mobility Assist Device Used No (0 pt) Altered Elimination No (0 pt) Score/Fall Risk Level 0 - 2 = Low Risk Oriented to surroundings, Maintained a safe environment. Abuse screen: Denies threats or abuse. Nutritional screening: No deficits noted. Tuberculosis screening: No symptoms or risk factors identified. Assessment: 14:18 General: Appears in no apparent distress. uncomfortable, Behavior is calm, cooperative. rs5 Pain: Complains of pain in epigastric area Pain currently is 3 out of 10 on a pain scale. Quality of pain is described as aching, Is continuous. Neuro: Level of Consciousness is awake, alert, obeys commands, Oriented to person, place, time, situation. Cardiovascular: Patient's skin is warm and dry. Rhythm is regular. Respiratory: Airway is patent Respiratory effort is even, unlabored, Respiratory pattern is regular, symmetrical. GI: Abdomen is round non-distended, Bowel sounds present X 4 quads. Abd is soft and non tender. : No signs and/or symptoms were reported regarding the genitourinary system. EENT: No signs and/or symptoms were reported regarding the EENT system. Derm: Skin is intact, Skin is dry, Skin is normal, Skin temperature is warm. Musculoskeletal: Circulation, motion, and sensation intact. 15:23 Reassessment: Patient and/or family updated on plan of care and expected duration. Pain rs5 level reassessed. Patient is alert, oriented x 3, equal unlabored respirations, skin warm/dry/pink. Patient denies pain at this time. Patient states feeling better. Patient states symptoms have improved. 16:54 Reassessment: Patient appears in no apparent distress at this time. rs5 Vital Signs: 14:18 BP 155 / 102; Pulse 107; Resp 18; Temp 98.3(TE); Pulse Ox 100% on R/A; Weight 79.38 kg; ld1 Height 5 ft. 6 in. ; Pain 5/10; 16:55 BP 144 / 91; Pulse 80; Resp 18; Pulse Ox 99% on R/A; rs5 14:18 Body Mass Index 28.25 (79.38 kg, 167.64 cm) ld1 14:18 Pain Scale: Adult ld1 ED Course: 14:14 Patient arrived in ED. rg4 14:18 Patient has correct armband on for positive identification. Placed in gown. Bed in low rs5 position. Call light in reach. Side rails up X2. 14:19 Eron Porter MD is Attending Physician. rn 14:19 Triage completed. ld1 14:19 Arm band placed on right wrist. ld1 14:34 Panfilo Cordova RN is Primary Nurse. rs5 14:56 CT Abd/Pelvis - IV Contrast Only In Process Unspecified. EDMS 15:00 XRAY Chest (1 view) In Process Unspecified. EDMS 16:55 No provider procedures requiring assistance completed. rs5 17:00 IV discontinued, intact, bleeding controlled, No redness/swelling at site. Pressure rs5 dressing applied. Administered Medications: 14:57 Drug: Famotidine IVP 20 mg IVP once; dilute with 10 mL 0.9% NaCl; give over 2 minutes rs5 Route: IVP; Site: left antecubital; 15:10 Follow up: Response: No adverse reaction rs5 14:57 Drug: NS 0.9% IV 1000 ml IV at 1000 ml once Route: IV; Rate: 1000 ml; Site: left rs5 antecubital; 15:10 Follow up: Response: No adverse reaction rs5 14:58 Not Given (Duplicate Order): ns 0.9% 1000 ml IV at 1 bolus Per protocol; 1000 mL bolus rs5 14:58 Drug: GI Cocktail without - (Maalox PO 30 ml, Lidocaine Mucous Membrane 2 % 15 rs5 ml) PO once Route: PO; 15:20 Follow up: Response: No adverse reaction rs5 Medication: 16:54 VIS not applicable for this client. rs5 Outcome: 16:48 Discharge ordered by . rn 17:00 Discharged to home ambulatory, rs5 17:00 Condition: stable 17:00 Discharge instructions given to patient, family, Instructed on discharge instructions, follow up and referral plans. Demonstrated understanding of instructions, follow-up care, 17:01 Patient left the ED. [id number] Signatures: Dispatcher [employer] EDMS Eron Porter MD MD rn Garcia, Rubi rg4 Caty Deleon RN RN ld1 Panfilo Cordova RN RN rs5 Bridget Stephen jr12 Corrections: (The following items were deleted from the chart) 14:19 14:19 Home Meds: None; ld1 ld1 14:19 14:19 PMHx: None; ld1 ld1 14:58 14:57 NS 0.9% IV 1000 ml IV at 1 bolus in left antecubital rs5 rs5
--- NOTE | 2023-11-19 16:48 | EDPHYS ---
Physician Documentation [facility] Name: Fredo Jones Age: 28 yrs Sex: Male : 1995 Arrival Date: 11/19/2023 Time: 14:11 Bed 20 Private MD: ED Physician Eron oPrter HPI: 11/18 14:40 This 28 yrs old Male presents to ER via Ambulatory with complaints of rn Abdominal Pain. 14:40 The patient presents with abdominal pain in the epigastric area. Onset: The rn symptoms/episode began/occurred 3 day(s) ago. The symptoms radiate to back. Associated signs and symptoms: Pertinent positives: nausea and vomiting, chest pain, Pertinent negatives: blood in stools, diarrhea, fever, hematuria, shortness of breath, testicular pain. The symptoms are described as achy. Modifying factors: The symptoms are alleviated by nothing, the symptoms are aggravated by food. Severity of pain: At its worst the pain was moderate in the emergency department the pain is unchanged. The patient has not experienced similar symptoms in the past. Patient reports normally does not drink much, 3 to 4 days ago had an alcoholic binge where he drank 20 drinks in about 3 hours. Shortly after started to vomit several times, no blood, continue to throw up the next day. Received IV fluids and takes Protonix. Overall feeling better but epigastric pain that radiates to the back has not resolved so came for evaluation. Already suffers from GERD and takes Protonix daily. Historical: - Allergies: 14:19 No Known Allergies; ld1 - PMHx: 14:19 Anxiety; Depressive disorder; Hypertensive disorder; GERD; ld1 - PSHx: 14:19 None; ld1 - Immunization history:: Adult Immunizations up to date. - Infectious Disease History:: Denies. - Social history:: Smoking status: Patient denies any tobacco usage or history of. - Family history:: not pertinent. - Hospitalizations: : No recent hospitalization is reported. ROS: 14:40 Constitutional: Negative for fever, chills, and weight loss, Cardiovascular: Negative rn for chest pain, palpitations, and edema, Respiratory: Negative for shortness of breath, cough, wheezing, and pleuritic chest pain, Abdomen/GI: Positive for abdominal pain that radiates to the back, positive for nausea and vomiting MS/Extremity: Negative for injury and deformity, Skin: Negative for injury, rash, and discoloration, Neuro: Negative for headache, weakness, numbness, tingling, and seizure, Exam: 14:40 Constitutional: This is a well developed, well nourished patient who is awake, alert, rn and in no acute distress. Cardiovascular: Tachycardic, regular. No pulse deficits. Respiratory: No increased work of breathing, no retractions or nasal flaring. Abdomen/GI: Soft, mild epigastric tenderness without rebound or guarding. No distention Vital Signs: 14:18 BP 155 / 102; Pulse 107; Resp 18; Temp 98.3(TE); Pulse Ox 100% on R/A; Weight 79.38 kg; ld1 Height 5 ft. 6 in. ; Pain 5/10; 16:55 BP 144 / 91; Pulse 80; Resp 18; Pulse Ox 99% on R/A; rs5 14:18 Body Mass Index 28.25 (79.38 kg, 167.64 cm) ld1 14:18 Pain Scale: Adult ld1 MDM: 14:19 Patient medically screened. rn 16:46 Differential diagnosis: gastritis, gastroesophageal reflux disease, pancreatitis, rn Peptic Ulcer Disease, Perf. Duodenal Ulcer, Perf. Gastric Ulcer. Data reviewed: vital signs, nurses notes, lab test result(s), radiologic studies, CT scan, and as a result, I will discharge patient. Counseling: I had a detailed discussion with the patient and/or guardian regarding the historical points, exam findings, and any diagnostic results supporting the discharge/admit diagnosis, lab results, radiology results, the need for outpatient follow up, to return to the emergency department if symptoms worsen or persist or if there are any questions or concerns that arise at home. Special discussion: Based on the patient's Hx, exam, and Dx evaluation, there is no indication for emergent surgery or inpatient Tx. It is understood by the patient/guardian that if the Sx's persist or worsen they need to return immediately for re-evaluation. I discussed with the patient/guardian in detail that at this point there is no indication for admission to the hospital. It is understood, however, that if the symptoms persist or worsen the patient needs to return immediately for re-evaluation. ED course: No acute findings and workup here. CT abdomen pelvis negative. Chest x-ray negative for pneumothorax or pneumomediastinum. Most likely gastritis and esophagitis as a result of alcohol binge this past weekend. Will discharge home with return precautions, bland diet, already on Protonix, can add Maalox and will follow-up with GI if symptoms worsen or return here.. 11/18 14:28 Order name: CBC with Diff; Complete Time: 15:17 rn 11/18 14:28 Order name: CMP; Complete Time: 15:17 rn 11/18 14:28 Order name: Lipase; Complete Time: 15:17 rn 11/18 14:28 Order name: CT Abd/Pelvis - IV Contrast Only; Complete Time: 16:35 rn 11/18 14:28 Order name: XRAY Chest (1 view); Complete Time: 16:35 rn 11/18 14:28 Order name: IV Saline Lock; Complete Time: 15:14 rn 11/18 14:28 Order name: Labs collected and sent; Complete Time: 15:14 rn 11/18 14:29 Order name: EKG - Nurse/Tech; Complete Time: 16:52 rn Administered Medications: 14:57 Drug: Famotidine IVP 20 mg IVP once; dilute with 10 mL 0.9% NaCl; give over 2 minutes rs5 Route: IVP; Site: left antecubital; 15:10 Follow up: Response: No adverse reaction rs5 14:57 Drug: NS 0.9% IV 1000 ml IV at 1000 ml once Route: IV; Rate: 1000 ml; Site: left rs5 antecubital; 15:10 Follow up: Response: No adverse reaction rs5 14:58 Not Given (Duplicate Order): ns 0.9% 1000 ml IV at 1 bolus Per protocol; 1000 mL bolus rs5 14:58 Drug: GI Cocktail without - (Maalox PO 30 ml, Lidocaine Mucous Membrane 2 % 15 rs5 ml) PO once Route: PO; 15:20 Follow up: Response: No adverse reaction rs5 Disposition Summary: 11/19/23 16:48 Discharge Ordered Notes: Location: Home rn Problem: new rn Symptoms: have improved rn Condition: Stable rn Diagnosis - Acute gastritis without bleeding rn - Esophagitis, unspecified rn Followup: rn - With: Private Physician - When: As needed - Reason: Recheck today's complaints, Re-evaluation by your physician Discharge Instructions: - Discharge Summary Sheet rn - Esophagitis rn - Gastritis, Adult rn Forms: - Medication Reconciliation Form rn - Antibiotic learning support specialist - Prescription Opioid Use rn - Patient Portal Instructions rn - Leadership Thank You Letter rn - Work release form rs5 Signatures: Dispatcher [employer] EDWA Eron Porter MD MD rn Sims, Lauren, RN RN ld1 Panfilo Cordova RN RN rs5 Corrections: (The following items were deleted from the chart) 14:19 14:19 Home Meds: None; ld1 ld1 14: 14:19 PMHx: None; ld1 ld1 14: 14:29 Abdomen Pelvis W Con+CT.RAD.BRZ ordered. EDWA EDWA 14: 14:29 Chest Single View+RAD.RAD.BRZ ordered. [facility] EDWA 14:44 14:40 Constitutional: This is a well developed, well nourished patient who is awake, rn alert, and in no acute distress. rn
[2023-11-19 17:43] VITALS: BP 144/91; TEMP 98.3; O2SAT 99
== END 2023-11-19 17:01 | disposition home or self-care (01) ==
LOC: ER 14:11
DX: K29.00 Acute gastritis without bleeding (principal); K20.90 Esophagitis, unspecified without bleeding
CPT/HCPCS: 85025; 36415; 83690; 80053; 74177; 71045; Q9967; J7030; 96374; 99284